=== PATIENT | female | born 1950 | race Caucasian/White ===

== ENCOUNTER 2017-02-28 11:48 | Day surgery (SDC) | payer MEDICARE, BC ==
[~2017-02-28 11:48] MED LIST: Lactated Ringers 1,000 ML IV SCH; Sodium Chloride 0.9% 10 ML Syringe FLUSH PRN
[2017-02-28] MEDS ORDERED: Midazolam 1 MG/ML 2 ML SDV ONE ×2 (12:49→13:01)
[2017-02-28] MEDS ORDERED: Propofol 200 MG/20 ML SDV ONE ×2 (12:49→13:01)
[2017-02-28] MEDS ORDERED: fentaNYL 100 MCG/2 ML SDV ONE ×2 (12:49→13:01)
--- NOTE | 2017-02-28 12:58 | PCM.HPR ---
H & P Addendum review - H & P Addendum Review Date of Original H & P: 02/13/17 Date Reviewed: 02/28/17 Time Reviewed: 12:58 Patient was Examined: No Changes
--- NOTE | 2017-02-28 13:34 | PCM.OPNOTE ---
- General Post-Op/Procedure Note Date of Surgery/Procedure: 02/28/17 Operative Procedure(s): Colonoscopy with polypectomy Findings: Sig colon polyp at 20 cm Pre Op Diagnosis: Hx Colon polyps Post-Op Diagnosis: Same Anesthesia Technique: MAC Primary Surgeon: Dwayne Bishop Anesthesia Provider: Marissa Brothers Complications: None Condition: Good Free Text/Narrative:: Intake & Output 02/27/17 02/28/17 02/28/17 22:59 06:59 14:59 Intake Total 500 Balance 500
--- NOTE | 2017-02-28 15:40 | OR ---
Date of Procedure: 02/28/2017 PREOPERATIVE DIAGNOSIS: History of colon polyps. POSTOPERATIVE DIAGNOSIS: Sigmoid colon polyp. PROCEDURE: Colonoscopy with polypectomy. ANESTHESIA: IV sedation. PROCEDURE IN DETAIL: The patient was brought to the procedure, where she was placed on her left side and IV sedation administered. Digital rectal exam was performed, which was normal. Colonoscope was inserted and advanced to the area of the hepatic flexure without difficulty. At that time, I experienced significant looping and the entire scope had been inserted and was unable to get further. Despite pressure on the abdomen, the scope would not advance. Prep up to that point was good and surfaces were well visualized. Upon withdrawing the scope, the visible ascending, transverse, and descending colon were normal. Sigmoid colon had an 8 mm sessile polyp located 20 cm from the anal verge. Those removed with a cautery snare and retrieved in the polyp trap. Rectum was normal and retroflexion was normal. Air was removed and the scope withdrawn. The patient tolerated the procedure well and returned to recovery in stable condition. I will contact the patient with the pathology report when it returns. The patient states that on previous colonoscopies, the entire colon was not able to be visualized and she has had previous barium enemas and does not wish to do that again. ERROL PERSAUD MD /[id number]
== END 2017-02-28 15:29 | disposition home or self-care (01) ==
LOC: LL.SDS 11:48
PROVIDERS: ATTEND Surgery
DX: Z12.11 Encounter for screening for malignant neoplasm of colon (principal); J44.9 Chronic obstructive pulmonary disease, unspecified; G47.33 Obstructive sleep apnea (adult) (pediatric); E11.9 Type 2 diabetes mellitus without complications; I10 Essential (primary) hypertension; E78.5 Hyperlipidemia, unspecified; F32.9 Major depressive disorder, single episode, unspecified; K21.9 Gastro-esophageal reflux disease without esophagitis; I73.9 Peripheral vascular disease, unspecified; Z79.84 Long term (current) use of oral hypoglycemic drugs; Z79.899 Other long term (current) drug therapy; Z86.010 Personal history of colon polyps; Z88.0 Allergy status to penicillin; Z99.89 Dependence on other enabling machines and devices; Z79.82 Long term (current) use of aspirin
CPT/HCPCS: 45385; 82962; J2250; J2704; J3010; J7120; 00812; 88305

== ENCOUNTER 2020-10-21 16:38 | Inpatient (IN) | payer MEDICARE, BC ==
--- NOTE | 2020-10-21 17:50 | EDM.PDOC ---
ED HPI GENERAL MEDICAL PROBLEM - General Chief Complaint: Fever Stated Complaint: fever, cough, confusion Time Seen by Provider: 10/21/20 16:53 Source of Information: Reports: Patient, Family History Limitations: Reports: Other (no obvious limitations) - History of Present Illness INITIAL COMMENTS - FREE TEXT/NARRATIVE: Patient comes in with complaint of 2-3 day history of cough. Has COPD, does not feel any more SOB than usual. Also history of sleep apnea/has not been using CPAP due to hers being recalled and unable to replace it so far with a new one. Fever of 101-102 last 24 hours. has noted that patient has been a bit confused for a number of months. He thought that maybe it coincided with her starting Gabapentin. Confusion has worsened over the last few days. She had issues putting her blouse on earlier. Decreased PO intake today. No headache or other new aches/pains. Denies GI changes. No sore throat/runny nose. Mild burning with urination "at times". No other acute changes. denies feeling ill. 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: Acetaminophen, NSAIDS - Related Data Allergies Allergy/AdvReac Type Severity Reaction Status Date / Time Penicillins Allergy Hives Verified 10/21/20 16:45 Home Meds: Home Meds Albuterol Sulfate [Proair Respiclick] 1 - 2 puff IH Q4H PRN 02/27/17 [History] Aspirin [Halfprin] 81 mg PO DAILY 02/27/17 [History] Benazepril HCl [Lotensin] 20 mg PO DAILY 02/27/17 [History] Calcium Citrate/Vitamin D3 [Calcium Citrate + D] 1 tab PO BIDMEALS 02/27/17 [History] Ferrous Sulfate 325 mg PO DAILY 02/27/17 [History] Insulin Aspart [NovoLOG] 12 - 24 unit SQ ACBREAKFAST 02/27/17 [History] Insulin Aspart [NovoLOG] 27 - 33 unit SQ ACDINNER 02/27/17 [History] Insulin Aspart [NovoLOG] 30 - 35 unit SQ ACLUNCH 02/27/17 [History] Insulin Glargine,Hum.Rec.Anlog [Mariel Solostar] 73 unit SQ BEDTIME 02/27/17 [History] Magnesium Oxide [Magnesium] 400 mg PO DAILY 02/27/17 [History] Metoprolol Succinate [Toprol XL] 100 mg PO DAILY 02/27/17 [History] Multivitamin [Daily Multiple Vitamin] 1 tab PO DAILY 02/27/17 [History] Omeprazole 20 mg PO Q48H 02/27/17 [History] Polyethylene Glycol 3350 [MiraLAX] 17 gm PO DAILY PRN 02/27/17 [History] Triamcinolone Acetonide [Triamcinolone Acetonide 0.1% Crm] 1 applic TOP BID PRN 02/27/17 [History] Triamterene/Hydrochlorothiazid [Triamterene-HCTZ 37.5-25 MG] 1 each PO DAILY 02/27/17 [History] atorvaSTATin [Lipitor] 40 mg PO DAILY 02/27/17 [History] buPROPion [Wellbutrin XL] 150 mg PO DAILY 02/27/17 [History] metFORMIN HCl [Metformin HCl] 1,000 mg PO BID 02/27/17 [History] Insulin Glargine,Hum.Rec.Anlog [Basaglar Kwikpen U-100] 76 unit SUBCUT DAILY 02/28/17 [History] Past Medical History HEENT History: Reports: Allergic Rhinitis Cardiovascular History: Reports: High Cholesterol, Hypertension, PVD, Other (See Below) Other Cardiovascular History: right bundle branch block Respiratory History: Reports: COPD, Sleep Apnea Gastrointestinal History: Reports: Cholelithiasis, Colon Polyp, Diverticulosis, GERD, Hemorrhoids, Other (See Below) Other Gastrointestinal History: nonalcoholic liver disease, colitis, rectocele Genitourinary History: Reports: Urinary Incontinence, Other (See Below) Other Genitourinary History: cystocele PHYSICAL TRAINER History: Reports: Other (See Below) Other PHYSICAL TRAINER History: ovarian cyst, galactorrhea Musculoskeletal History: Reports: Osteoarthritis, Other (See Below) Other Musculoskeletal History: carpal tunnel syndrome left Psychiatric History: Reports: Depression, Other (See Below) (recent signs of memory impairment/confusion) Endocrine/Metabolic History: Reports: Diabetes, Type II, Obesity/BMI 30+, Osteopenia Oncologic (Cancer) History: Reports: Breast Other Oncologic History: ductal carcinoma in situ of right breast - Past Surgical History GI Surgical History: Reports: Cholecystectomy, Colonoscopy, Hernia Repair/Other, Other (See Below) Other GI Surgeries/Procedures: hemmorroid surgery Female Surgical History: Reports: Hysterectomy, Mastectomy, Other (See Below) Other Female Surgeries/Procedures: right breast lumpectomy 2010, right partial mastectomy 01/08/11, vaginal wall repair 2002 Neurological Surgical History: Reports: Other (See Below) Other Neurological Surgeries/Procedures: lumbar disc surgery, spine repair Musculoskeletal Surgical History: Reports: Carpal Tunnel, Other (See Below) Social & Family History - Tobacco Use Tobacco Use Status *Q: Never Tobacco User Second Hand Smoke Exposure: No ED ROS GENERAL - Review of Systems Review Of Systems: Comprehensive ROS is negative, except as noted in HPI. ED EXAM, GENERAL - Physical Exam Exam: See Below Exam Limited By: No Limitations General Appearance: Alert, No Apparent Distress, Obese Eye Exam: Bilateral Eye: EOMI, PERRL Ears: Normal External Exam, Normal Canal, Hearing Grossly Normal, Normal TMs Nose: No: Nasal Deformity, Nasal Swelling Throat/Mouth: Normal Lips, Normal Voice, No Airway Compromise Head: Atraumatic, Normocephalic Neck: Normal Inspection, Supple, Non-Tender, Full Range of Motion Respiratory/Chest: No Respiratory Distress, Lungs Clear, Normal Breath Sounds, No Accessory Muscle Use, Chest Non-Tender Cardiovascular: Normal Peripheral Pulses, Regular Rate, Rhythm, No Murmur GI/Abdominal: Normal Bowel Sounds, Soft, Non-Tender (Female) Exam: Deferred Rectal (Female) Exam: Deferred Back Exam: No: CVA Tenderness (L), CVA Tenderness (R), Muscle Spasm, Paraspinal Tenderness, Vertebral Tenderness Extremities: Non-Tender, No Pedal Edema, Normal Capillary Refill Neurological: Alert, No Motor/Sensory Deficits, 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 Cannot recall year. ) Psychiatric: Normal Affect, Normal Mood Skin Exam: Warm, Dry, Intact, Normal Color Course - Vital Signs Last Recorded V/S: Last Vital Signs Temp 38.4 C H 10/21/20 19:52 Pulse 109 H 10/21/20 19:52 Resp 20 10/21/20 19:52 BP 101/44 L 10/21/20 19:53 Pulse Ox 94 L 10/21/20 19:52 - Orders/Labs/Meds Orders: Active Orders 24 hr Category Date Time Status Vital Signs [RC] 08,20 Care 10/21/20 18:32 Active Chest 2V [CR] Stat Exams 10/21/20 16:54 Taken CULTURE BLOOD [BC] Stat Lab 10/21/20 17:32 Received CULTURE BLOOD [] Stat Lab 10/21/20 17:32 Received Sodium Chloride 0.9% [Normal Saline] 500 ml Med 10/21/20 18:30 Active IV .BOLUS Sodium Chloride 0.9% [Saline Flush] Med 10/21/20 18:23 Active 10 ml FLUSH ASDIRECTED PRN Blood Culture x2 Reflex Set [OM.PC] Stat Oth 10/21/20 16:55 Ordered Saline Lock Insert [OM.PC] Routine Oth 10/21/20 18:23 Ordered Medication Orders Sodium Chloride (Normal Saline) 500 mls @ 250 mls/hr IV .BOLUS SHARIF Sodium Chloride (Sodium Chloride 0.9% 10 Ml Syringe) 10 ml FLUSH ASDIRECTED PRN PRN Reason: Keep Vein Open Labs: Laboratory Tests 10/21/20 10/21/20 10/21/20 Range/Units 16:53 16:54 17:23 WBC 10.3 H (4.0-10.2) K/uL RBC 4.10 (3.77-5.09) M/uL Hgb 12.2 (11.7-15.5) g/dL Hct 37.4 (34.0-46.0) % MCV 91.2 (84.0-98.0) fL MCH 29.8 (28.2-33.3) pg MCHC 32.6 (31.7-36.0) g/dL RDW 14.6 H (11.2-14.1) % Plt Count 116 L (150-350) K/uL Neut % (Auto) 76.8 (45.0-80.0) % Lymph % (Auto) 13.2 (10.0-50.0) % Glascock % (Auto) 9.0 (2.0-14.0) % Eos % (Auto) 0.7 (0.0-5.0) % Baso % (Auto) 0.3 (0.0-2.0) % Neut # (Auto) 7.93 H (1.40-7.00) K/uL Lymph # (Auto) 1.36 (0.50-3.50) K/uL Glascock # (Auto) 0.93 (0.00-1.00) K/uL Eos # (Auto) 0.07 (0.00-0.50) K/uL Baso # (Auto) 0.03 (0.00-0.20) K/uL D-Dimer, Quantitative (0-400) ng/mL Sodium (136-145) mmol/L Potassium (3.5-5.1) mmol/L Chloride (98-107) mmol/L Carbon Dioxide (21.0-32.0) mmol/L Anion Gap (7-15) meq/L BUN (7-18) mg/dL Creatinine (0.51-1.17) mg/dL Est Cr Clr Drug Dosing mL/min Estimated GFR (MDRD) mL/min Glucose (70-99) mg/dL Lactic Acid (0.4-2.0) mmol/L Calcium (8.5-10.1) mg/dL Magnesium (1.8-2.4) mg/dL Total Bilirubin (0.2-1.0) mg/dL AST (15-37) U/L ALT (12-78) U/L Alkaline Phosphatase (46-116) IU/L NT-Pro-B Natriuret Pep (0-125) pg/mL Total Protein (6.4-8.2) g/dL Albumin (3.4-5.0) g/dL Specimen Type Urinvoid Urine Color Yellow Urine Appearance Slightly cloudy Urine pH 5.5 (5.0-9.0) Ur Specific Dunning >= 1.030 (1.005-1.030) Urine Protein 30 H (NEGATIVE) mg/dL Urine Glucose (UA) Negative (NEGATIVE) mg/dL Urine Ketones Trace H (NEGATIVE) mg/dL Urine Occult Blood Negative (NEGATIVE) Urine Nitrite Negative (NEGATIVE) Urine Bilirubin Small H (NEGATIVE) Urine Urobilinogen 1.0 (0.2-1.0) E.U./dL Ur Leukocyte Esterase Negative (NEGATIVE) Urine RBC 0-5 /HPF Urine WBC 0-5 /HPF Ur Epithelial Cells Many H /LPF Urine Bacteria Few (NONE TO FEW) /HPF SARS-CoV-2 RNA (KOBE) Negative (NEGATIVE) 10/21/20 10/21/20 10/21/20 Range/Units 17:32 17:32 17:32 WBC (4.0-10.2) K/uL RBC (3.77-5.09) M/uL Hgb (11.7-15.5) g/dL Hct (34.0-46.0) % MCV (84.0-98.0) fL MCH (28.2-33.3) pg MCHC (31.7-36.0) g/dL RDW (11.2-14.1) % Plt Count (150-350) K/uL Neut % (Auto) (45.0-80.0) % Lymph % (Auto) (10.0-50.0) % Glascock % (Auto) (2.0-14.0) % Eos % (Auto) (0.0-5.0) % Baso % (Auto) (0.0-2.0) % Neut # (Auto) (1.40-7.00) K/uL Lymph # (Auto) (0.50-3.50) K/uL Glascock # (Auto) (0.00-1.00) K/uL Eos # (Auto) (0.00-0.50) K/uL Baso # (Auto) (0.00-0.20) K/uL D-Dimer, Quantitative 1990 H (0-400) ng/mL Sodium 139 (136-145) mmol/L Potassium 4.3 (3.5-5.1) mmol/L Chloride 103 (98-107) mmol/L Carbon Dioxide 25.1 (21.0-32.0) mmol/L Anion Gap 10.9 (7-15) meq/L BUN 32 H (7-18) mg/dL Creatinine 1.80 H (0.51-1.17) mg/dL Est Cr Clr Drug Dosing 22.34 mL/min Estimated GFR (MDRD) 28 mL/min Glucose 270 H (70-99) mg/dL Lactic Acid 3.6 H (0.4-2.0) mmol/L Calcium 9.5 (8.5-10.1) mg/dL Magnesium 1.5 L (1.8-2.4) mg/dL Total Bilirubin 1.9 H (0.2-1.0) mg/dL AST 19 (15-37) U/L ALT 29 (12-78) U/L Alkaline Phosphatase 103 (46-116) IU/L NT-Pro-B Natriuret Pep 466 H (0-125) pg/mL Total Protein 7.5 (6.4-8.2) g/dL Albumin 3.2 L (3.4-5.0) g/dL Specimen Type Urine Color Urine Appearance Urine pH (5.0-9.0) Ur Specific Dunning (1.005-1.030) Urine Protein (NEGATIVE) mg/dL Urine Glucose (UA) (NEGATIVE) mg/dL Urine Ketones (NEGATIVE) mg/dL Urine Occult Blood (NEGATIVE) Urine Nitrite (NEGATIVE) Urine Bilirubin (NEGATIVE) Urine Urobilinogen (0.2-1.0) E.U./dL Ur Leukocyte Esterase (NEGATIVE) Urine RBC /HPF Urine WBC /HPF Ur Epithelial Cells /LPF Urine Bacteria (NONE TO FEW) /HPF SARS-CoV-2 RNA (KOBE) (NEGATIVE) Meds: Medications Generic Name Dose Route Start Last Admin Trade Name Freq PRN Reason Stop Dose Admin Sodium Chloride 500 mls @ 250 mls/hr 10/21/20 18:30 Normal Saline IV .BOLUS SHARIF Sodium Chloride 10 ml 10/21/20 18:23 Sodium Chloride 0.9% 10 Ml Syringe FLUSH ASDIRECTED PRN Keep Vein Open Discontinued Medications Generic Name Dose Route Start Last Admin Trade Name Freq PRN Reason Stop Dose Admin Acetaminophen 650 mg 10/21/20 18:46 10/21/20 19:46 Acetaminophen 325 Mg Tab PO 10/21/20 18:47 650 mg NOW ONE Administration Azithromycin 500 mg 10/21/20 18:13 10/21/20 18:36 Azithromycin 250 Mg Tab PO 10/21/20 18:14 Not Given ONETIME ONE Ceftriaxone Sodium 1 gm 10/21/20 18:12 10/21/20 18:36 Ceftriaxone 1 Gm Vial IM 10/21/20 18:13 Not Given ONETIME ONE Azithromycin 500 mg/ Sodium 250 mls @ 250 mls/hr 10/21/20 18:21 10/21/20 19:45 Chloride IV 10/21/20 19:20 250 mls/hr ONETIME ONE Administration Ceftriaxone Sodium 1 gm/ 100 mls @ 200 mls/hr 10/21/20 18:22 10/21/20 18:44 Sodium Chloride IV 10/21/20 18:51 200 mls/hr ONETIME ONE Administration Magnesium Sulfate/Dextrose 1 100 mls @ 100 mls/hr 10/21/20 18:23 gm/ Premix IV 10/21/20 19:22 ONETIME ONE - Radiology Interpretation Free Text/Narrative:: Xray shows right middle lobe infiltrate - Re-Assessments/Exams Free Text/Narrative Re-Assessment/Exam: 10/21/20 18:24 Right middle lobe infiltrate. WBC 10.3. Elevated specific gravity of urine/suspect mild dehydration. Creatinine 1.80. Mag low at 1.5. ProBNP 466. Total bili 1.9 with normal ALT/AST. DDimer elevated at 1989. Lactic also el evated at 3.6 Covid negative. Unable to collect sputum for culture at this time. Discussed above results with patient and her . Inpatient vs outpatient options reviewed with them. Noted that patient's respiratory rate is normal. Sats on room air 93%/she has known history of COPD. Again she denies feeling more SOB than usual. Mild tachycardia and fever noted along with the elevated l actic. Patient wanted to be able to go home. Willing to receive IV antibiotics with return as outpatient tomorrow for recheck and additional dosing of antibiotics. Discussed elevated DDimer and how it can be a flag for PE. Again, patient does not feel additional SOB. No pain/swelling/symptoms suggestive of DVT noted on exam. Patient and did not want additional evaluation for rule out PE at this time. Blood cultures pending. Plan at this time is to infuse Rocephin/Zithromax along with 500ml NS. Will also give single dose of Magnesium. Will leave saline lock in place and have patient return tomorrow for re-evaluation and additional IV antibiotics. 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 Recheck labs tomorrow. 10/21/20 20:01 Patient's confusion increased during antibiotic infusion. She pulled out her IV. IV re-established. Recommended to patient and patient's that it would be best to admit for further treatment. They were agreeable with admission. Departure - Departure Time of Disposition: 20:10 Disposition: Admitted As Inpatient 64 Condition: Good Clinical Impression: Lactic acid increased, Creatinine elevation, Hypomagnesemia, D-dimer, elevated, Hyperbilirubinemia Right middle lobe pneumonia Qualifiers: Pneumonia type: due to unspecified organism Qualified Code(s): J18.9 - Pneumonia, unspecified organism - Discharge Information *PRESCRIPTION DRUG MONITORING PROGRAM REVIEWED*: Not Applicable *COPY OF PRESCRIPTION DRUG MONITORING REPORT IN PATIENT LEIF: Not Applicable Sepsis Event Note (ED) - Evaluation Sepsis Screening Result: Possible Sepsis Risk - Focused Exam Vital Signs: Vital Signs Temp Pulse Resp BP BP Pulse Ox 10/21/20 19:53 101/44 L 10/21/20 19:52 38.4 C H 109 H 20 81/41 L 94 L 10/21/20 19:04 39.0 C H 10/21/20 17:05 39.1 C H 106 H 20 152/65 H 93 L 10/21/20 16:39 39.1 C H 20 - Problem List & Annotations (1) Right middle lobe pneumonia SNOMED Code(s): 962881633 Code(s): J18.9 - PNEUMONIA, UNSPECIFIED ORGANISM Status: Acute Priority: High Current Visit: Yes Annotation/Comment:: Right middle lobe pneumonia. Started on IV Rocephin and Zithromax. Blood cultures pending. Qualifiers: Pneumonia type: due to unspecified organism Qualified Code(s): J18.9 - Pneumonia, unspecified organism (2) Confusion SNOMED Code(s): 759061077 Code(s): R41.0 - DISORIENTATION, UNSPECIFIED Status: Acute Priority: High Current Visit: Yes Annotation/Comment:: reports patient has been intermittently mildly confused for a number of months since starting Gabapentin. Much more pronounced confusion last several days since developing symptoms of pneumonia. (3) Lactic acid increased SNOMED Code(s): 00108252 Code(s): E87.2 - ACIDOSIS Status: Acute Priority: High Current Visit: Yes Annotation/Comment:: Blood cultures pending. Recheck in AM. (4) Creatinine elevation SNOMED Code(s): 343212478, 642994211 Code(s): R79.89 - OTHER SPECIFIED ABNORMAL FINDINGS OF BLOOD CHEMISTRY Status: Acute Priority: Medium Current Visit: Yes Annotation/Comment:: Suspect some degree of dehydration. Recheck in AM. (5) Hypomagnesemia SNOMED Code(s): 131235530 Code(s): E83.42 - HYPOMAGNESEMIA Status: Chronic Priority: Medium Current Visit: Yes Annotation/Comment:: Magnesium replacement initiated. (6) D-dimer, elevated SNOMED Code(s): 690395095 Code(s): R79.89 - OTHER SPECIFIED ABNORMAL FINDINGS OF BLOOD CHEMISTRY Status: Acute Priority: Medium Current Visit: Yes Annotation/Comment:: No evidence of DVTs. Patient denies acute increase SOB. Normal respiratory rate. Patient and decline further evaluation at this time. Patient would require VQ scan if creatinine remains elevated. (7) Hyperbilirubinemia SNOMED Code(s): 51435283 Code(s): E80.6 - OTHER DISORDERS OF BILIRUBIN METABOLISM Status: Chronic Priority: Low Current Visit: Yes Annotation/Comment:: History of chronic non-alcoholic liver disease per record. (8) HTN (hypertension) SNOMED Code(s): 39715883 Code(s): I10 - ESSENTIAL (PRIMARY) HYPERTENSION Status: Chronic Priority: Low Current Visit: No Annotation/Comment:: observe trends Qualifiers: Hypertension type: primary hypertension Qualified Code(s): I10 - Essential (primary) hypertension (9) Hyperlipidemia SNOMED Code(s): 86200209 Code(s): E78.5 - HYPERLIPIDEMIA, UNSPECIFIED Status: Chronic Priority: Low Current Visit: No Annotation/Comment:: stable per history Qualifiers: Hyperlipidemia type: unspecified Qualified Code(s): E78.5 - Hyperlipidemia, unspecified (10) COPD (chronic obstructive pulmonary disease) SNOMED Code(s): 57091093 Code(s): J44.9 - CHRONIC OBSTRUCTIVE PULMONARY DISEASE, UNSPECIFIED Status: Chronic Priority: Low Current Visit: Yes Annotation/Comment:: No symptoms suggestive of acute exacerbation at this time. Qualifiers: COPD type: unspecified COPD Qualified Code(s): J44.9 - Chronic obstructive pulmonary disease, unspecified (11) Sleep apnea SNOMED Code(s): 22337679 Code(s): G47.30 - SLEEP APNEA, UNSPECIFIED Status: Chronic Priority: Low Current Visit: No Annotation/Comment:: Patient does not use CPAP at this time due to her CPAP being recalled and so far unable to obtain a new unit. Qualifiers: Sleep apnea type: unspecified type Qualified Code(s): G47.30 - Sleep apnea, unspecified (12) GERD (gastroesophageal reflux disease) SNOMED Code(s): 475952176 Code(s): K21.9 - GASTRO-ESOPHAGEAL REFLUX DISEASE WITHOUT ESOPHAGITIS Status: Chronic Priority: Low Current Visit: No Annotation/Comment:: stable per history Qualifiers: Esophagitis presence: esophagitis presence not specified Qualified Code(s): K21.9 - Gastro-esophageal reflux disease without esophagitis (13) Nonalcoholic liver disease, chronic SNOMED Code(s): 73592228 Code(s): K76.9 - LIVER DISEASE, UNSPECIFIED Status: Chronic Priority: Low Current Visit: No (14) Osteoarthritis SNOMED Code(s): 342015657 Code(s): M19.90 - UNSPECIFIED OSTEOARTHRITIS, UNSPECIFIED SITE Status: Chronic Priority: Low Current Visit: No Annotation/Comment:: stable per history Qualifiers: Osteoarthritis location: unspecified site (15) DM type 2 (diabetes mellitus, type 2) SNOMED Code(s): 92337720 Code(s): E11.9 - TYPE 2 DIABETES MELLITUS WITHOUT COMPLICATIONS Status: Chronic Priority: Low Current Visit: Yes Annotation/Comment:: accuchecks ordered. Qualifiers: Diabetes mellitus group home insulin use: with terminal carman use - Problem List Review Problem List Initiated/Reviewed/Updated: Yes - My Orders Last 24 Hours: My Active Orders 10/21/20 16:54 Chest 2V [CR] Stat 10/21/20 16:55 Blood Culture x2 Reflex Set [OM.PC] Stat 10/21/20 17:32 CULTURE BLOOD [BC] Stat CULTURE BLOOD [BC] Stat 10/21/20 18:23 Sodium Chloride 0.9% [Saline Flush] 10 ml FLUSH ASDIRECTED PRN Saline Lock Insert [OM.PC] Routine 10/21/20 18:30 Sodium Chloride 0.9% [Normal Saline] 500 ml IV .BOLUS 10/21/20 18:32 Vital Signs [RC] 08,20 - Assessment/Plan Admission H&P: Please use this note as an admission H&P Last 24 Hours: My Active Orders 10/21/20 16:54 Chest 2V [CR] Stat 10/21/20 16:55 Blood Culture x2 Reflex Set [OM.PC] Stat 10/21/20 17:32 CULTURE BLOOD [BC] Stat CULTURE BLOOD [BC] Stat 10/21/20 18:23 Sodium Chloride 0.9% [Saline Flush] 10 ml FLUSH ASDIRECTED PRN Saline Lock Insert [OM.PC] Routine 10/21/20 18:30 Sodium Chloride 0.9% [Normal Saline] 500 ml IV .BOLUS 10/21/20 18:32 Vital Signs [RC] 08,20 Assessment:: as above Plan: as above. Anticipate 3-4 day stay given multiple concerns/sepsis risk/confusion.
[2020-10-21 18:05] LABS: ANION GAP 10.9 meq/L (7-15)
[2020-10-21] MEDS ORDERED: cefTRIAXone 1 GM Vial IM ONE (18:12)
[2020-10-21] MEDS ORDERED: Azithromycin 250 MG Tab PO ONE (18:13)
[2020-10-21] MEDS ORDERED: Azithromycin 500 MG in Sodium Chloride 0.9% 250 ML IV ONE (18:21)
[2020-10-21] MEDS ORDERED: cefTRIAXone 1 GM in Sodium Chloride 0.9% 100 ML IV ONE (18:22)
[2020-10-21] MEDS ORDERED: Sodium Chloride 0.9% 500 ML IV SCH (18:30)
[2020-10-21] MEDS ORDERED: Acetaminophen 325 MG Tab PO ONE (18:46)
[2020-10-21] MEDS ORDERED: LORazepam 2 MG/ML SDV IVPUSH PRN (20:59)
[2020-10-21] MEDS ORDERED: 50% Dextrose in Water 50 ML Syringe IVPUSH PRN (21:12)
[2020-10-21] MEDS ORDERED: Glucagon,Human Recombinant 1 MG Vial IM PRN (21:12)
[2020-10-21] MEDS ORDERED: Omeprazole 20 MG Cap.CR PO SCH (21:15)
[2020-10-21] MEDS: Enoxaparin 30 MG/0.3 ML Syringe SUBCUT SCH (23:15)
[2020-10-22] MEDS: Sodium Chloride 0.9% 1,000 ML IV SCH ×3 (00:05→20:45)
[2020-10-22] MEDS ORDERED: Acetaminophen 325 MG Tab PO PRN (00:52)
[2020-10-22] MEDS: guaiFENesin/Dextromethorphan 100-10 MG/5 ML Soln 10 ML Cup PO PRN ×2 (01:01→11:53)
[2020-10-22] MEDS: Acetaminophen 325 MG Tab PO PRN ×4 (01:04→17:01)
[2020-10-22] MEDS ORDERED: Albuterol 6.7 GM Inhaler INH PRN (05:00)
[2020-10-22] MEDS ORDERED: metFORMIN 500 MG Tab PO SCH ×2 (07:30→08:00)
[2020-10-22] MEDS: Albuterol 6.7 GM Inhaler INH SCH ×4 (07:57→20:45)
[2020-10-22] MEDS: Insulin Lispro 100 Units/ML 3 ML Vial SUBCUT SCH ×2 (07:57→17:16)
[2020-10-22] MEDS: Lisinopril 20 MG Tab PO SCH (07:58)
[2020-10-22] MEDS: atorvaSTATin 40 MG Tab PO SCH (07:59)
[2020-10-22] MEDS: Hydrochlorothiazide/Triamterene 50-75 MG Tab PO SCH (07:59)
[2020-10-22] MEDS: Aspirin 81 MG Tab.EC PO SCH (07:59)
[2020-10-22] MEDS: Metoprolol Succinate 50 MG Tab.ER PO SCH (07:59)
[2020-10-22] MEDS: buPROPion 150 MG Tab.ER PO SCH (07:59)
[2020-10-22] MEDS: cefTRIAXone 1 GM in Sodium Chloride 0.9% 100 ML IV SCH (08:02)
[2020-10-22 08:10] LABS: ANION GAP 4.2 meq/L (7-15)
[2020-10-22] MEDS: Polyethylene Glycol 3350 Powder 17 GM Packet PO PRN (11:53)
[2020-10-22] MEDS: Azithromycin 500 MG in Sodium Chloride 0.9% 250 ML IV SCH (16:01)
[2020-10-22] MEDS ORDERED: Pantoprazole 40 MG Vial IVPUSH ONE (16:33)
[2020-10-22] MEDS ORDERED: Famotidine 20 MG/2 ML SDV IVPUSH ONE (16:33)
[2020-10-22] MEDS ORDERED: Ondansetron 4 MG/2 ML SDV IVPUSH PRN (16:44)
[2020-10-22] MEDS ORDERED: Ondansetron 4 MG/2 ML SDV ONE (16:59)
[2020-10-22] MEDS: Sodium Chloride 0.9% 10 ML Syringe FLUSH PRN ×2 (17:01→17:06)
--- NOTE | 2020-10-22 19:09 | PCM.SN.2 ---
- Free Text/Narrative Note: Patient responded well to 500ml bolus of NS along with volume of fluid administered from IV antibiotics. BP improved. Maintenance fluids initiated after initial bolus. Recheck of Lactic acid later in evening showed that it returned with normal level.
--- NOTE | 2020-10-22 19:16 | PCM.PN ---
- General Info Date of Service: 10/22/20 Admission Dx/Problem (Free Text): Right middle lobe pneumonia, low Magnesium Subjective Update: Patient feeling better today. No specific focal complaints when asked. Functional Status: Reports: Pain Controlled, Tolerating Diet, Ambulating, Urinating. Denies: New Symptoms - Review of Systems General: Reports: Fever (low grade). Denies: Weakness, Fatigue, Malaise, Chills, Night Sweats HEENT: Reports: No Symptoms Pulmonary: Reports: Cough. Denies: Shortness of Breath, Pleuritic Chest Pain, Sputum, Hemoptysis, Wheezing Cardiovascular: Denies: Chest Pain, Palpitations, Orthopnea, Edema, Lightheadedness Gastrointestinal: Reports: No Symptoms Genitourinary: Reports: No Symptoms Musculoskeletal: Reports: Other (no acute changes from baseline) Skin: Reports: No Symptoms Neurological: Reports: Confusion (much improved overnight). Denies: Dizziness, Headache, Trouble Speaking, Change in Speech Psychiatric: Reports: No Symptoms - Patient Data Vitals - Most Recent: Last Vital Signs Temp 37.9 C 10/22/20 18:04 Pulse 86 10/22/20 16:54 Resp 18 10/22/20 16:54 BP 109/62 10/22/20 16:54 Pulse Ox 92 L 10/22/20 16:54 Weight - Most Recent: 113.489 kg I&O - Last 24 Hours: Intake & Output 10/22/20 10/22/20 10/22/20 06:59 14:59 22:59 Intake Total 7621 357 5630 Output Total 400 400 200 Balance 1250 -200 1850 Lab Results Last 24 Hours: Laboratory Results - last 24 hr 10/21/20 10/21/20 10/22/20 Range/Units 23:05 23:10 07:32 WBC (4.0-10.2) K/uL RBC (3.77-5.09) M/uL Hgb (11.7-15.5) g/dL Hct (34.0-46.0) % MCV (84.0-98.0) fL MCH (28.2-33.3) pg MCHC (31.7-36.0) g/dL RDW (11.2-14.1) % Plt Count (150-350) K/uL Neut % (Auto) (45.0-80.0) % Lymph % (Auto) (10.0-50.0) % [place] % (Auto) (2.0-14.0) % Eos % (Auto) (0.0-5.0) % Baso % (Auto) (0.0-2.0) % Neut # (Auto) (1.40-7.00) K/uL Lymph # (Auto) (0.50-3.50) K/uL [place] # (Auto) (0.00-1.00) K/uL Eos # (Auto) (0.00-0.50) K/uL Baso # (Auto) (0.00-0.20) K/uL Sodium 136 (136-145) mmol/L Potassium 4.2 (3.5-5.1) mmol/L Chloride 105 (98-107) mmol/L Carbon Dioxide 26.8 (21.0-32.0) mmol/L Anion Gap 4.2 L (7-15) meq/L BUN 29 H (7-18) mg/dL Creatinine 1.56 H (0.51-1.17) mg/dL Est Cr Clr Drug Dosing 25.78 mL/min Estimated GFR (MDRD) 33 mL/min Glucose 256 H (70-99) mg/dL POC Glucose 221 H (70-99) mg/dL Lactic Acid 2.0 (0.4-2.0) mmol/L Calcium 8.4 L (8.5-10.1) mg/dL Magnesium 1.6 L (1.8-2.4) mg/dL Total Bilirubin 1.7 H (0.2-1.0) mg/dL AST 21 (15-37) U/L ALT 25 (12-78) U/L Alkaline Phosphatase 86 (46-116) IU/L Total Protein 6.4 (6.4-8.2) g/dL Albumin 2.6 L (3.4-5.0) g/dL 10/22/20 10/22/20 10/22/20 Range/Units 07:32 07:32 07:40 WBC 8.3 (4.0-10.2) K/uL RBC 3.49 L (3.77-5.09) M/uL Hgb 10.5 L D (11.7-15.5) g/dL Hct 31.7 L (34.0-46.0) % MCV 90.8 (84.0-98.0) fL MCH 30.1 (28.2-33.3) pg MCHC 33.1 (31.7-36.0) g/dL RDW 14.6 H (11.2-14.1) % Plt Count 108 L (150-350) K/uL Neut % (Auto) 76.9 (45.0-80.0) % Lymph % (Auto) 13.0 (10.0-50.0) % [place] % (Auto) 8.7 (2.0-14.0) % Eos % (Auto) 1.2 (0.0-5.0) % Baso % (Auto) 0.2 (0.0-2.0) % Neut # (Auto) 6.37 (1.40-7.00) K/uL Lymph # (Auto) 1.08 (0.50-3.50) K/uL [place] # (Auto) 0.72 (0.00-1.00) K/uL Eos # (Auto) 0.10 (0.00-0.50) K/uL Baso # (Auto) 0.02 (0.00-0.20) K/uL Sodium (136-145) mmol/L Potassium (3.5-5.1) mmol/L Chloride (98-107) mmol/L Carbon Dioxide (21.0-32.0) mmol/L Anion Gap (7-15) meq/L BUN (7-18) mg/dL Creatinine (0.51-1.17) mg/dL Est Cr Clr Drug Dosing mL/min Estimated GFR (MDRD) mL/min Glucose (70-99) mg/dL POC Glucose 243 H (70-99) mg/dL Lactic Acid 1.6 (0.4-2.0) mmol/L Calcium (8.5-10.1) mg/dL Magnesium (1.8-2.4) mg/dL Total Bilirubin (0.2-1.0) mg/dL AST (15-37) U/L ALT (12-78) U/L Alkaline Phosphatase (46-116) IU/L Total Protein (6.4-8.2) g/dL Albumin (3.4-5.0) g/dL 10/22/20 10/22/20 Range/Units 11:26 17:08 WBC (4.0-10.2) K/uL RBC (3.77-5.09) M/uL Hgb (11.7-15.5) g/dL Hct (34.0-46.0) % MCV (84.0-98.0) fL MCH (28.2-33.3) pg MCHC (31.7-36.0) g/dL RDW (11.2-14.1) % Plt Count (150-350) K/uL Neut % (Auto) (45.0-80.0) % Lymph % (Auto) (10.0-50.0) % [place] % (Auto) (2.0-14.0) % Eos % (Auto) (0.0-5.0) % Baso % (Auto) (0.0-2.0) % Neut # (Auto) (1.40-7.00) K/uL Lymph # (Auto) (0.50-3.50) K/uL [place] # (Auto) (0.00-1.00) K/uL Eos # (Auto) (0.00-0.50) K/uL Baso # (Auto) (0.00-0.20) K/uL Sodium (136-145) mmol/L Potassium (3.5-5.1) mmol/L Chloride (98-107) mmol/L Carbon Dioxide (21.0-32.0) mmol/L Anion Gap (7-15) meq/L BUN (7-18) mg/dL Creatinine (0.51-1.17) mg/dL Est Cr Clr Drug Dosing mL/min Estimated GFR (MDRD) mL/min Glucose (70-99) mg/dL POC Glucose 220 H 256 H (70-99) mg/dL Lactic Acid (0.4-2.0) mmol/L Calcium (8.5-10.1) mg/dL Magnesium (1.8-2.4) mg/dL Total Bilirubin (0.2-1.0) mg/dL AST (15-37) U/L ALT (12-78) U/L Alkaline Phosphatase (46-116) IU/L Total Protein (6.4-8.2) g/dL Albumin (3.4-5.0) g/dL Andi Results Last 24 Hours: Microbiology 10/21/20 17:32 Aerobic Blood Culture - Preliminary Blood - Venous NO GROWTH AFTER 1 DAY Anaerobic Blood Culture - Preliminary NO GROWTH AFTER 1 DAY 10/21/20 17:32 Aerobic Blood Culture - Preliminary Blood - Venous - Lab Draw NO GROWTH AFTER 1 DAY Anaerobic Blood Culture - Preliminary NO GROWTH AFTER 1 DAY Med Orders - Current: Current Medications Acetaminophen (Acetaminophen 325 Mg Tab) 650 mg PO Q4H PRN PRN Reason: Fever Last Admin: 10/22/20 17:01 Dose: 650 mg Documented by: Albuterol (Albuterol 6.7 Gm Inhaler) 0 gm INH QID [facility] Last Admin: 10/22/20 16:00 Dose: 2 puff Documented by: Albuterol (Albuterol 6.7 Gm Inhaler) 0 gm INH Q4H PRN PRN Reason: Dyspnea Last Admin: 10/22/20 05:06 Dose: 2 puff Documented by: Aspirin (Aspirin 81 Mg Tab.Ec) 81 mg PO DAILY [facility] Last Admin: 10/22/20 07:59 Dose: 81 mg Documented by: Atorvastatin Calcium (Atorvastatin 40 Mg Tab) 40 mg PO DAILY [facility] Last Admin: 10/22/20 07:59 Dose: 40 mg Documented by: Bupropion HCl (Bupropion 150 Mg Tab.Er) 150 mg PO DAILY [facility] Last Admin: 10/22/20 07:59 Dose: 150 mg Documented by: Dextrose/Water (50% Dextrose In Water 50 Ml Syringe) 50 ml IVPUSH ASDIRECTED PRN PRN Reason: Hypoglycemia Enoxaparin Sodium (Enoxaparin 30 Mg/0.3 Ml Syringe) 30 mg SUBCUT Q24H [facility] Last Admin: 10/21/20 23:15 Dose: 30 mg Documented by: Glucagon (Glucagon,Human Recombinant 1 Mg Vial) 1 mg IM ASDIRECTED PRN PRN Reason: Hypoglycemia Guaifenesin/Dextromethorphan (Guaifenesin/Dextromethorphan 100-10 Mg/5 Ml Soln 10 Ml Cup) 10 ml PO Q4H PRN PRN Reason: Cough Last Admin: 10/22/20 11:53 Dose: 10 ml Documented by: Sodium Chloride (Normal Saline) 1,000 mls @ 75 mls/hr IV ASDIRECTED [facility] Last Admin: 10/22/20 07:56 Dose: 75 mls/hr Documented by: Azithromycin 500 mg/ Sodium (Chloride) 250 mls @ 250 mls/hr IV Q24H [facility] Last Admin: 10/22/20 16:01 Dose: 250 mls/hr Documented by: Ceftriaxone Sodium 1 gm/ (Sodium Chloride) 100 mls @ 200 mls/hr IV Q24H [facility] Last Admin: 10/22/20 08:02 Dose: 200 mls/hr Documented by: Magnesium Sulfate/Dextrose 1 (gm/ Premix) 100 mls @ 100 mls/hr IV ONETIME ONE Stop: 10/22/20 20:02 Magnesium Sulfate/Dextrose 1 (gm/ Premix) 100 mls @ 100 mls/hr IV ONETIME ONE Stop: 10/23/20 07:59 Insulin Human Lispro (Insulin Lispro 100 Units/Ml 3 Ml Vial) 0 unit SUBCUT BIDAC [facility]; Protocol Last Admin: 10/22/20 17:16 Dose: 6 unit Documented by: Lisinopril (Lisinopril 20 Mg Tab) 20 mg PO DAILY [facility] Last Admin: 10/22/20 07:58 Dose: 20 mg Documented by: Lorazepam (Lorazepam 2 Mg/Ml Sdv) 0.5 mg IVPUSH Q4H PRN PRN Reason: Agitation Metoprolol Succinate (Metoprolol Succinate 50 Mg Tab.Er) 100 mg PO DAILY [facility] Last Admin: 10/22/20 07:59 Dose: 100 mg Documented by: Ondansetron HCl (Ondansetron 4 Mg/2 Ml Sdv) 4 mg IVPUSH Q6H PRN PRN Reason: Nausea Last Admin: 10/22/20 17:05 Dose: 4 mg Documented by: Polyethylene Glycol (Polyethylene Glycol 3350 Powder 17 Gm Packet) 17 gm PO DAILY PRN PRN Reason: Constipation Last Admin: 10/22/20 11:53 Dose: 17 gm Documented by: Sodium Chloride (Sodium Chloride 0.9% 10 Ml Syringe) 10 ml FLUSH ASDIRECTED PRN PRN Reason: Keep Vein Open Last Admin: 10/22/20 17:06 Dose: 10 ml Documented by: Triamterene/Hydrochlorothiazide (Hydrochlorothiazide/Triamterene 50-75 Mg Tab) 0.5 each PO DAILY [facility] Last Admin: 10/22/20 07:59 Dose: 0.5 each Documented by: Discontinued Medications Acetaminophen (Acetaminophen 325 Mg Tab) 650 mg PO NOW ONE Stop: 10/21/20 18:47 Last Admin: 10/21/20 19:46 Dose: 650 mg Documented by: Azithromycin (Azithromycin 250 Mg Tab) 500 mg PO ONETIME ONE Stop: 10/21/20 18:14 Last Admin: 10/21/20 18:36 Dose: Not Given Documented by: Ceftriaxone Sodium (Ceftriaxone 1 Gm Vial) 1 gm IM ONETIME ONE Stop: 10/21/20 18:13 Last Admin: 10/21/20 18:36 Dose: Not Given Documented by: Azithromycin 500 mg/ Sodium (Chloride) 250 mls @ 250 mls/hr IV ONETIME ONE Stop: 10/21/20 19:20 Last Admin: 10/21/20 19:45 Dose: 250 mls/hr Documented by: Ceftriaxone Sodium 1 gm/ (Sodium Chloride) 100 mls @ 200 mls/hr IV ONETIME ONE Stop: 10/21/20 18:51 Last Admin: 10/21/20 18:44 Dose: 200 mls/hr Documented by: Sodium Chloride (Normal Saline) 500 mls @ 250 mls/hr IV .BOLUS [facility]AR[facility] Last Admin: 10/21/20 22:02 Dose: 250 mls/hr Documented by: Magnesium Sulfate/Dextrose 1 (gm/ Premix) 100 mls @ 100 mls/hr IV ONETIME ONE Stop: 10/21/20 19:22 Last Admin: 10/21/20 20:56 Dose: 100 mls/hr Documented by: Metformin HCl (Metformin 500 Mg Tab) 1,000 mg PO BID [facility] Omeprazole (Omeprazole 20 Mg Cap.Cr) 20 mg PO Q48H [facility] Last Admin: 10/21/20 23:11 Dose: Not Given Documented by: Ondansetron HCl (Ondansetron 4 Mg/2 Ml Sdv) Confirm Administered Dose 4 mg .ROUTE .STK-MED ONE Stop: 10/22/20 17:00 Last Admin: 10/22/20 17:17 Dose: Not Given Documented by: Pantoprazole Sodium (Pantoprazole 40 Mg Vial) 40 mg IVPUSH ONETIME ONE Stop: 10/22/20 16:34 Last Admin: 10/22/20 17:01 Dose: 40 mg Documented by: - Exam Quality Assessment: DVT Prophylaxis General: Alert, Oriented, Cooperative, No Acute Distress HEENT: Pupils Equal, Pupils Reactive, EOMI, Mucous Membr. Moist/Joy Neck: Supple Lungs: Clear to Auscultation, Normal Respiratory Effort Cardiovascular: Regular Rate, Regular Rhythm GI/Abdominal Exam: Normal Bowel Sounds, Soft, Non-Tender, No Distention (Female) Exam: Deferred Back Exam: No: CVA Tenderness (L), CVA Tenderness (R), Muscle Spasm, Paraspinal Tenderness, Vertebral Tenderness Extremities: Non-Tender, No Pedal Edema, Normal Capillary Refill Skin: Warm, Dry Neurological: No New Focal Deficit Psy/Mental Status: Alert, Normal Affect, Normal Mood - Patient Data Lab Results Last 24 hrs: Laboratory Results - last 24 hr 10/21/20 10/21/20 10/22/20 Range/Units 23:05 23:10 07:32 WBC (4.0-10.2) K/uL RBC (3.77-5.09) M/uL Hgb (11.7-15.5) g/dL Hct (34.0-46.0) % MCV (84.0-98.0) fL MCH (28.2-33.3) pg MCHC (31.7-36.0) g/dL RDW (11.2-14.1) % Plt Count (150-350) K/uL Neut % (Auto) (45.0-80.0) % Lymph % (Auto) (10.0-50.0) % [place] % (Auto) (2.0-14.0) % Eos % (Auto) (0.0-5.0) % Baso % (Auto) (0.0-2.0) % Neut # (Auto) (1.40-7.00) K/uL Lymph # (Auto) (0.50-3.50) K/uL [place] # (Auto) (0.00-1.00) K/uL Eos # (Auto) (0.00-0.50) K/uL Baso # (Auto) (0.00-0.20) K/uL Sodium 136 (136-145) mmol/L Potassium 4.2 (3.5-5.1) mmol/L Chloride 105 (98-107) mmol/L Carbon Dioxide 26.8 (21.0-32.0) mmol/L Anion Gap 4.2 L (7-15) meq/L BUN 29 H (7-18) mg/dL Creatinine 1.56 H (0.51-1.17) mg/dL Est Cr Clr Drug Dosing 25.78 mL/min Estimated GFR (MDRD) 33 mL/min Glucose 256 H (70-99) mg/dL POC Glucose 221 H (70-99) mg/dL Lactic Acid 2.0 (0.4-2.0) mmol/L Calcium 8.4 L (8.5-10.1) mg/dL Magnesium 1.6 L (1.8-2.4) mg/dL Total Bilirubin 1.7 H (0.2-1.0) mg/dL AST 21 (15-37) U/L ALT 25 (12-78) U/L Alkaline Phosphatase 86 (46-116) IU/L Total Protein 6.4 (6.4-8.2) g/dL Albumin 2.6 L (3.4-5.0) g/dL 10/22/20 10/22/20 10/22/20 Range/Units 07:32 07:32 07:40 WBC 8.3 (4.0-10.2) K/uL RBC 3.49 L (3.77-5.09) M/uL Hgb 10.5 L D (11.7-15.5) g/dL Hct 31.7 L (34.0-46.0) % MCV 90.8 (84.0-98.0) fL MCH 30.1 (28.2-33.3) pg MCHC 33.1 (31.7-36.0) g/dL RDW 14.6 H (11.2-14.1) % Plt Count 108 L (150-350) K/uL Neut % (Auto) 76.9 (45.0-80.0) % Lymph % (Auto) 13.0 (10.0-50.0) % [place] % (Auto) 8.7 (2.0-14.0) % Eos % (Auto) 1.2 (0.0-5.0) % Baso % (Auto) 0.2 (0.0-2.0) % Neut # (Auto) 6.37 (1.40-7.00) K/uL Lymph # (Auto) 1.08 (0.50-3.50) K/uL [place] # (Auto) 0.72 (0.00-1.00) K/uL Eos # (Auto) 0.10 (0.00-0.50) K/uL Baso # (Auto) 0.02 (0.00-0.20) K/uL Sodium (136-145) mmol/L Potassium (3.5-5.1) mmol/L Chloride (98-107) mmol/L Carbon Dioxide (21.0-32.0) mmol/L Anion Gap (7-15) meq/L BUN (7-18) mg/dL Creatinine (0.51-1.17) mg/dL Est Cr Clr Drug Dosing mL/min Estimated GFR (MDRD) mL/min Glucose (70-99) mg/dL POC Glucose 243 H (70-99) mg/dL Lactic Acid 1.6 (0.4-2.0) mmol/L Calcium (8.5-10.1) mg/dL Magnesium (1.8-2.4) mg/dL Total Bilirubin (0.2-1.0) mg/dL AST (15-37) U/L ALT (12-78) U/L Alkaline Phosphatase (46-116) IU/L Total Protein (6.4-8.2) g/dL Albumin (3.4-5.0) g/dL 10/22/20 10/22/20 Range/Units 11:26 17:08 WBC (4.0-10.2) K/uL RBC (3.77-5.09) M/uL Hgb (11.7-15.5) g/dL Hct (34.0-46.0) % MCV (84.0-98.0) fL MCH (28.2-33.3) pg MCHC (31.7-36.0) g/dL RDW (11.2-14.1) % Plt Count (150-350) K/uL Neut % (Auto) (45.0-80.0) % Lymph % (Auto) (10.0-50.0) % [place] % (Auto) (2.0-14.0) % Eos % (Auto) (0.0-5.0) % Baso % (Auto) (0.0-2.0) % Neut # (Auto) (1.40-7.00) K/uL Lymph # (Auto) (0.50-3.50) K/uL [place] # (Auto) (0.00-1.00) K/uL Eos # (Auto) (0.00-0.50) K/uL Baso # (Auto) (0.00-0.20) K/uL Sodium (136-145) mmol/L Potassium (3.5-5.1) mmol/L Chloride (98-107) mmol/L Carbon Dioxide (21.0-32.0) mmol/L Anion Gap (7-15) meq/L BUN (7-18) mg/dL Creatinine (0.51-1.17) mg/dL Est Cr Clr Drug Dosing mL/min Estimated GFR (MDRD) mL/min Glucose (70-99) mg/dL POC Glucose 220 H 256 H (70-99) mg/dL Lactic Acid (0.4-2.0) mmol/L Calcium (8.5-10.1) mg/dL Magnesium (1.8-2.4) mg/dL Total Bilirubin (0.2-1.0) mg/dL AST (15-37) U/L ALT (12-78) U/L Alkaline Phosphatase (46-116) IU/L Total Protein (6.4-8.2) g/dL Albumin (3.4-5.0) g/dL Result Diagrams: 10/22/20 07:32 10/22/20 07:32 Andi Results Last 24 hrs: Microbiology 10/21/20 17:32 Aerobic Blood Culture - Preliminary Blood - Venous NO GROWTH AFTER 1 DAY Anaerobic Blood Culture - Preliminary NO GROWTH AFTER 1 DAY 10/21/20 17:32 Aerobic Blood Culture - Preliminary Blood - Venous - Lab Draw NO GROWTH AFTER 1 DAY Anaerobic Blood Culture - Preliminary NO GROWTH AFTER 1 DAY Sepsis Event Note - Evaluation Sepsis Screening Result: Possible Sepsis Risk - Focused Exam Vital Signs: Vital Signs Temp Temp Pulse Pulse Resp BP BP 10/22/20 18:04 37.9 C 10/22/20 16:54 38.7 C H 86 18 109/62 10/22/20 12:00 37.6 C 80 16 10/22/20 08:00 37.7 C 97 20 10/22/20 07:59 97 127/72 10/22/20 07:58 127/72 BP Pulse Ox 10/22/20 18:04 10/22/20 16:54 92 L 10/22/20 12:00 127/72 95 10/22/20 08:00 127/72 93 L 10/22/20 07:59 10/22/20 07:58 - Problem List & Annotations (1) Right middle lobe pneumonia SNOMED Code(s): 677814338 Code(s): J18.9 - PNEUMONIA, UNSPECIFIED ORGANISM Status: Acute Priority: High Current Visit: Yes Onset Date: ~10/19/20 Qualifiers: Pneumonia type: due to unspecified organism Qualified Code(s): J18.9 - Pneumonia, unspecified organism Annotation/Comment:: Right middle lobe pneumonia. Started on IV Rocephin and Zithromax. Blood cultures pending. (2) Confusion SNOMED Code(s): 302834370 Code(s): R41.0 - DISORIENTATION, UNSPECIFIED Status: Acute Priority: High Current Visit: Yes Annotation/Comment:: reports patient has been intermittently mildly confused for a number of months since starting Gabapentin. Much more pronounced confusion last several days since developing symptoms of pneumonia. Very confused at time of admission but significant improvement as of 10/22 recheck. Recommended to to discuss formal cognitive testing referral with patient's primary or possibly holding Gabapentin to see if the chronic low grade memory issues improve. To follow up with PCP after discharge regarding this. (3) Lactic acid increased SNOMED Code(s): 89950320 Code(s): E87.2 - ACIDOSIS Status: Acute Priority: High Current Visit: Yes Annotation/Comment:: Blood cultures pending/currently negative. Lactic acid normalized with rechecked last evening. (4) Creatinine elevation SNOMED Code(s): 927423341, 131281139 Code(s): R79.89 - OTHER SPECIFIED ABNORMAL FINDINGS OF BLOOD CHEMISTRY Status: Acute Priority: Medium Current Visit: Yes Annotation/Comment:: Suspect some degree of dehydration. Improved after IV fluids. Patient recalls today that she has been told that she has chronic renal insufficiency. Pharmacy recommended that we hold Metformin for now. (5) Hypomagnesemia SNOMED Code(s): 468779007 Code(s): E83.42 - HYPOMAGNESEMIA Status: Chronic Priority: Medium Current Visit: Yes Annotation/Comment:: Magnesium replacement initiated. Still low as of today. Continue replacement therapy. Patient will benefit from increased PO Magnesium supplement dosing at time of discharge. (6) D-dimer, elevated SNOMED Code(s): 656363270 Code(s): R79.89 - OTHER SPECIFIED ABNORMAL FINDINGS OF BLOOD CHEMISTRY Status: Acute Priority: Medium Current Visit: Yes Annotation/Comment:: No evidence of DVTs. Patient denies acute increase SOB. Normal respiratory rate. O2 sats mid 90s on room air. Patient and decline further evaluation at this time. Patient would require VQ scan if creatinine remains elevated. (7) Hyperbilirubinemia SNOMED Code(s): 13937113 Code(s): E80.6 - OTHER DISORDERS OF BILIRUBIN METABOLISM Status: Chronic Priority: Low Current Visit: Yes Annotation/Comment:: History of chronic non-alcoholic liver disease per record. (8) HTN (hypertension) SNOMED Code(s): 92054233 Code(s): I10 - ESSENTIAL (PRIMARY) HYPERTENSION Status: Chronic Priority: Low Current Visit: No Qualifiers: Hypertension type: primary hypertension Qualified Code(s): I10 - Essential (primary) hypertension Annotation/Comment:: observe trends. Has been stable (9) Hyperlipidemia SNOMED Code(s): 18791120 Code(s): E78.5 - HYPERLIPIDEMIA, UNSPECIFIED Status: Chronic Priority: Low Current Visit: No Qualifiers: Hyperlipidemia type: unspecified Qualified Code(s): E78.5 - Hyperlipidemia, unspecified Annotation/Comment:: stable per history (10) COPD (chronic obstructive pulmonary disease) SNOMED Code(s): 74417202 Code(s): J44.9 - CHRONIC OBSTRUCTIVE PULMONARY DISEASE, UNSPECIFIED Status: Chronic Priority: Low Current Visit: Yes Qualifiers: COPD type: unspecified COPD Qualified Code(s): J44.9 - Chronic obstructive pulmonary disease, unspecified Annotation/Comment:: No symptoms suggestive of acute exacerbation at this time. (11) Sleep apnea SNOMED Code(s): 31301267 Code(s): G47.30 - SLEEP APNEA, UNSPECIFIED Status: Chronic Priority: Low Current Visit: No Qualifiers: Sleep apnea type: unspecified type Qualified Code(s): G47.30 - Sleep apnea, unspecified Annotation/Comment:: Patient does not use CPAP at this time due to her CPAP being recalled and so far unable to obtain a new unit. (12) GERD (gastroesophageal reflux disease) SNOMED Code(s): 702387525 Code(s): K21.9 - GASTRO-ESOPHAGEAL REFLUX DISEASE WITHOUT ESOPHAGITIS Status: Chronic Priority: Low Current Visit: No Qualifiers: Esophagitis presence: esophagitis presence not specified Qualified Code(s): K21.9 - Gastro-esophageal reflux disease without esophagitis Annotation/Comment:: stable per history (13) Nonalcoholic liver disease, chronic SNOMED Code(s): 37451309 Code(s): K76.9 - LIVER DISEASE, UNSPECIFIED Status: Chronic Priority: Low Current Visit: No (14) Osteoarthritis SNOMED Code(s): 198358577 Code(s): M19.90 - UNSPECIFIED OSTEOARTHRITIS, UNSPECIFIED SITE Status: Chronic Priority: Low Current Visit: No Qualifiers: Osteoarthritis location: unspecified site Annotation/Comment:: stable per history (15) DM type 2 (diabetes mellitus, type 2) SNOMED Code(s): 96127623 Code(s): E11.9 - TYPE 2 DIABETES MELLITUS WITHOUT COMPLICATIONS Status: Chronic Priority: Low Current Visit: Yes Qualifiers: Diabetes mellitus correction insulin use: with correction use Annotation/Comment:: accuchecks ordered. Sliding scale insulin ordered. - Problem List Review Problem List Initiated/Reviewed/Updated: Yes - My Orders Last 24 Hours: My Active Orders 10/21/20 18:23 Sodium Chloride 0.9% [Saline Flush] 10 ml FLUSH ASDIRECTED PRN Saline Lock Insert [OM.PC] Routine 10/21/20 20:56 Patient Status [ADT] Routine Blood Glucose Check, Bedside [RC] QIDACANDBED Height and Weight [RC] DAILY May Shower [RC] ASDIRECTED Oxygen Therapy [RC] PRN Up With Assistance [RC] ASDIRECTED VTE/DVT Education [RC] PER UNIT ROUTINE Vital Signs [RC] Q4HR OT Evaluation and Treatment [CONS] Routine PT Evaluation and Treatment [CONS] Routine Resuscitation Status Routine 10/21/20 20:57 Intake and Output [RC] 06,18 Pulse Oximetry [RC] PRN 10/21/20 20:59 LORazepam [Ativan] 0.5 mg IVPUSH Q4H PRN 10/21/20 21:00 Sodium Chloride 0.9% [Normal Saline] 1,000 ml IV ASDIRECTED 10/21/20 21:09 polyethylene glycoL 3350 [MiraLAX] 17 gm PO DAILY PRN 10/21/20 21:12 Dextrose 50% in Water 50 ml IVPUSH ASDIRECTED PRN Glucagon,Human Recombinant [GlucaGen] 1 mg IM ASDIRECTED PRN 10/21/20 21:15 Enoxaparin [Lovenox] 30 mg SUBCUT Q24H 10/21/20 21:18 Consult to Case Management/Director Of Strategic Programs [CONS] Routine 10/22/20 00:49 Dextromethorphan/guaiFENesin [Robitussin DM] 10 ml PO Q4H PRN 10/22/20 01:00 Acetaminophen [TylenoL] 650 mg PO Q4H PRN 10/22/20 05:00 RT Post Treatment Assessment [RC] Click to Edit RT Pre-Treatment Assessment [RC] Click to Edit Albuterol [Proventil HFA] See Dose Instructions INH Q4H PRN 10/22/20 Breakfast [employer] Diet [DIET] Insulin Lispro [HumaLOG] See Protocol SUBCUT BIDAC 10/22/20 08:00 Albuterol [Proventil HFA] See Dose Instructions INH QID Aspirin [Halfprin] 81 mg PO DAILY HCTZ/Triamterene [Maxzide 50-75 MG] 0.5 each PO DAILY Metoprolol Succinate [Toprol XL] 100 mg PO DAILY atorvaSTATin [Lipitor] 40 mg PO DAILY buPROPion [Wellbutrin XL] 150 mg PO DAILY lisinopriL [Prinivil] 20 mg PO DAILY 10/22/20 09:00 cefTRIAXone [Rocephin] 1 gm Sodium Chloride 0.9% [Normal Saline] 100 ml IV Q24H 10/22/20 16:00 Azithromycin [Zithromax] 500 mg Sodium Chloride 0.9% [Normal Saline] 250 ml IV Q24H 10/22/20 16:44 Ondansetron [Zofran] 4 mg IVPUSH Q6H PRN 10/22/20 19:03 Magnesium Sulfate/D5W [Magnesium Sulfate in D5W 1 GM/100 ML] 1 gm Premix Bag 1 bag IV ONETIME 10/23/20 05:11 CBC WITH AUTO DIFF [HEME] AM COMPREHENSIVE METABOLIC PN,CMP [CHEM] AM LACTIC ACID [CHEM] AM MAGNESIUM [CHEM] AM 10/23/20 07:00 Magnesium Sulfate/D5W [Magnesium Sulfate in D5W 1 GM/100 ML] 1 gm Premix Bag 1 bag IV ONETIME - Assessment Assessment:: as above. - Plan Plan:: as above. Anticipate an additional 2-3 days inpatient care over the weekend for continued IV antibiotics with continuation of oral antibiotics at time of discharge. Continue to follow Magnesium levels and renal function.
[2020-10-22] MEDS ORDERED: LORazepam 2 MG/ML SDV IVPUSH PRN (19:24)
[2020-10-22] MEDS: Enoxaparin 30 MG/0.3 ML Syringe SUBCUT SCH (22:25)
[2020-10-23] MEDS: Albuterol 6.7 GM Inhaler INH SCH ×4 (07:31→20:07)
[2020-10-23] MEDS: atorvaSTATin 40 MG Tab PO SCH (07:32)
[2020-10-23] MEDS: Aspirin 81 MG Tab.EC PO SCH (07:35)
[2020-10-23] MEDS: Metoprolol Succinate 50 MG Tab.ER PO SCH (07:35)
[2020-10-23] MEDS: Insulin Lispro 100 Units/ML 3 ML Vial SUBCUT SCH ×3 (07:36→17:38)
[2020-10-23 08:14] LABS: ANION GAP 6.2 meq/L (7-15)
[2020-10-23] MEDS: Polyethylene Glycol 3350 Powder 17 GM Packet PO PRN (08:28)
[2020-10-23] MEDS: cefTRIAXone 1 GM in Sodium Chloride 0.9% 100 ML IV SCH (08:28)
[2020-10-23] MEDS: buPROPion 150 MG Tab.ER PO SCH ×2 (09:04→09:51)
[2020-10-23] MEDS: Hydrochlorothiazide/Triamterene 50-75 MG Tab PO SCH (09:50)
[2020-10-23] MEDS: Lisinopril 20 MG Tab PO SCH (09:51)
[2020-10-23] MEDS: guaiFENesin/Dextromethorphan 100-10 MG/5 ML Soln 10 ML Cup PO PRN (09:51)
[2020-10-23] MEDS: Magnesium Oxide 400 MG Tab PO SCH ×2 (09:51→17:37)
--- NOTE | 2020-10-23 09:51 | PCM.PN ---
- General Info Date of Service: 10/23/20 Admission Dx/Problem (Free Text): Right middle lobe pneumonia, low Magnesium Subjective Update: Patient feeling better today. No specific focal complaints when asked. Functional Status: Reports: Pain Controlled, Tolerating Diet, Ambulating, Urinating. Denies: New Symptoms - Review of Systems General: Denies: Fever, Weakness, Malaise, Chills, Night Sweats HEENT: Reports: Other (no acute changes) Pulmonary: Reports: Cough. Denies: Shortness of Breath, Pleuritic Chest Pain, Sputum, Hemoptysis, Wheezing Cardiovascular: Reports: No Symptoms Gastrointestinal: Reports: No Symptoms Genitourinary: Reports: No Symptoms Musculoskeletal: Reports: Other (no acute changes) Skin: Reports: No Symptoms Neurological: Reports: Other (denies acute changes) Psychiatric: Reports: Confusion (intermittent confusion noted during stay). Denies: Depression, Mood Lability, Anxiety, Agitation, Hallucinations - Patient Data Vitals - Most Recent: Last Vital Signs Temp 37.3 C 10/23/20 07:35 Pulse 80 10/23/20 07:35 Resp 20 10/23/20 07:35 BP 103/51 L 10/23/20 08:31 Pulse Ox 94 L 10/23/20 07:35 Weight - Most Recent: 113.489 kg I&O - Last 24 Hours: Intake & Output 10/22/20 10/23/20 10/23/20 22:59 06:59 14:59 Intake Total 2050 706 360 Output Total 200 1100 Balance 1850 -394 360 Lab Results Last 24 Hours: Laboratory Results - last 24 hr 10/22/20 10/22/20 10/22/20 Range/Units 11:26 17:08 20:47 WBC (4.0-10.2) K/uL RBC (3.77-5.09) M/uL Hgb (11.7-15.5) g/dL Hct (34.0-46.0) % MCV (84.0-98.0) fL MCH (28.2-33.3) pg MCHC (31.7-36.0) g/dL RDW (11.2-14.1) % Plt Count (150-350) K/uL Neut % (Auto) (45.0-80.0) % Lymph % (Auto) (10.0-50.0) % [place] % (Auto) (2.0-14.0) % Eos % (Auto) (0.0-5.0) % Baso % (Auto) (0.0-2.0) % Neut # (Auto) (1.40-7.00) K/uL Lymph # (Auto) (0.50-3.50) K/uL [place] # (Auto) (0.00-1.00) K/uL Eos # (Auto) (0.00-0.50) K/uL Baso # (Auto) (0.00-0.20) K/uL Sodium (136-145) mmol/L Potassium (3.5-5.1) mmol/L Chloride (98-107) mmol/L Carbon Dioxide (21.0-32.0) mmol/L Anion Gap (7-15) meq/L BUN (7-18) mg/dL Creatinine (0.51-1.17) mg/dL Est Cr Clr Drug Dosing mL/min Estimated GFR (MDRD) mL/min Glucose (70-99) mg/dL POC Glucose 220 H 256 H 263 H (70-99) mg/dL Lactic Acid (0.4-2.0) mmol/L Calcium (8.5-10.1) mg/dL Magnesium (1.8-2.4) mg/dL Total Bilirubin (0.2-1.0) mg/dL AST (15-37) U/L ALT (12-78) U/L Alkaline Phosphatase (46-116) IU/L Total Protein (6.4-8.2) g/dL Albumin (3.4-5.0) g/dL 10/23/20 10/23/20 10/23/20 Range/Units 07:35 07:36 07:36 WBC 7.2 (4.0-10.2) K/uL RBC 3.40 L (3.77-5.09) M/uL Hgb 10.1 L (11.7-15.5) g/dL Hct 30.8 L (34.0-46.0) % MCV 90.6 (84.0-98.0) fL MCH 29.7 (28.2-33.3) pg MCHC 32.8 (31.7-36.0) g/dL RDW 14.3 H (11.2-14.1) % Plt Count 122 L (150-350) K/uL Neut % (Auto) 67.9 (45.0-80.0) % Lymph % (Auto) 16.6 (10.0-50.0) % [place] % (Auto) 10.8 (2.0-14.0) % Eos % (Auto) 4.4 (0.0-5.0) % Baso % (Auto) 0.3 (0.0-2.0) % Neut # (Auto) 4.92 (1.40-7.00) K/uL Lymph # (Auto) 1.20 (0.50-3.50) K/uL [place] # (Auto) 0.78 (0.00-1.00) K/uL Eos # (Auto) 0.32 (0.00-0.50) K/uL Baso # (Auto) 0.02 (0.00-0.20) K/uL Sodium 136 (136-145) mmol/L Potassium 4.5 (3.5-5.1) mmol/L Chloride 105 (98-107) mmol/L Carbon Dioxide 24.8 (21.0-32.0) mmol/L Anion Gap 6.2 L (7-15) meq/L BUN 23 H (7-18) mg/dL Creatinine 1.40 H (0.51-1.17) mg/dL Est Cr Clr Drug Dosing 28.73 mL/min Estimated GFR (MDRD) 37 mL/min Glucose 237 H (70-99) mg/dL POC Glucose 229 H (70-99) mg/dL Lactic Acid (0.4-2.0) mmol/L Calcium 8.6 (8.5-10.1) mg/dL Magnesium 1.9 (1.8-2.4) mg/dL Total Bilirubin 0.9 (0.2-1.0) mg/dL AST 33 (15-37) U/L ALT 28 (12-78) U/L Alkaline Phosphatase 87 (46-116) IU/L Total Protein 6.3 L (6.4-8.2) g/dL Albumin 2.4 L (3.4-5.0) g/dL 10/23/20 Range/Units 07:36 WBC (4.0-10.2) K/uL RBC (3.77-5.09) M/uL Hgb (11.7-15.5) g/dL Hct (34.0-46.0) % MCV (84.0-98.0) fL MCH (28.2-33.3) pg MCHC (31.7-36.0) g/dL RDW (11.2-14.1) % Plt Count (150-350) K/uL Neut % (Auto) (45.0-80.0) % Lymph % (Auto) (10.0-50.0) % [place] % (Auto) (2.0-14.0) % Eos % (Auto) (0.0-5.0) % Baso % (Auto) (0.0-2.0) % Neut # (Auto) (1.40-7.00) K/uL Lymph # (Auto) (0.50-3.50) K/uL [place] # (Auto) (0.00-1.00) K/uL Eos # (Auto) (0.00-0.50) K/uL Baso # (Auto) (0.00-0.20) K/uL Sodium (136-145) mmol/L Potassium (3.5-5.1) mmol/L Chloride (98-107) mmol/L Carbon Dioxide (21.0-32.0) mmol/L Anion Gap (7-15) meq/L BUN (7-18) mg/dL Creatinine (0.51-1.17) mg/dL Est Cr Clr Drug Dosing mL/min Estimated GFR (MDRD) mL/min Glucose (70-99) mg/dL POC Glucose (70-99) mg/dL Lactic Acid 1.5 (0.4-2.0) mmol/L Calcium (8.5-10.1) mg/dL Magnesium (1.8-2.4) mg/dL Total Bilirubin (0.2-1.0) mg/dL AST (15-37) U/L ALT (12-78) U/L Alkaline Phosphatase (46-116) IU/L Total Protein (6.4-8.2) g/dL Albumin (3.4-5.0) g/dL Andi Results Last 24 Hours: Microbiology 10/21/20 17:32 Aerobic Blood Culture - Preliminary Blood - Venous NO GROWTH AFTER 1 DAY Anaerobic Blood Culture - Preliminary NO GROWTH AFTER 1 DAY 10/21/20 17:32 Aerobic Blood Culture - Preliminary Blood - Venous - Lab Draw NO GROWTH AFTER 1 DAY Anaerobic Blood Culture - Preliminary NO GROWTH AFTER 1 DAY Med Orders - Current: Current Medications Acetaminophen (Acetaminophen 325 Mg Tab) 650 mg PO Q4H PRN PRN Reason: Fever Last Admin: 10/22/20 17:01 Dose: 650 mg Documented by: Albuterol (Albuterol 6.7 Gm Inhaler) 0 gm INH QID SHARIF Last Admin: 10/23/20 07:31 Dose: 2 puff Documented by: Albuterol (Albuterol 6.7 Gm Inhaler) 0 gm INH Q4H PRN PRN Reason: Dyspnea Last Admin: 10/22/20 05:06 Dose: 2 puff Documented by: Aspirin (Aspirin 81 Mg Tab.Ec) 81 mg PO DAILY [facility] Last Admin: 10/23/20 07:35 Dose: 81 mg Documented by: Atorvastatin Calcium (Atorvastatin 40 Mg Tab) 40 mg PO DAILY [facility] Last Admin: 10/23/20 07:32 Dose: 40 mg Documented by: Bupropion HCl (Bupropion 150 Mg Tab.Er) 300 mg PO DAILY [facility] Dextrose/Water (50% Dextrose In Water 50 Ml Syringe) 50 ml IVPUSH ASDIRECTED PRN PRN Reason: Hypoglycemia Enoxaparin Sodium (Enoxaparin 30 Mg/0.3 Ml Syringe) 30 mg SUBCUT Q24H [facility] Last Admin: 10/22/20 22:25 Dose: 30 mg Documented by: Glucagon (Glucagon,Human Recombinant 1 Mg Vial) 1 mg IM ASDIRECTED PRN PRN Reason: Hypoglycemia Guaifenesin/Dextromethorphan (Guaifenesin/Dextromethorphan 100-10 Mg/5 Ml Soln 10 Ml Cup) 10 ml PO Q4H PRN PRN Reason: Cough Last Admin: 10/22/20 11:53 Dose: 10 ml Documented by: Azithromycin 500 mg/ Sodium (Chloride) 250 mls @ 250 mls/hr IV Q24H [facility] Last Admin: 10/22/20 16:01 Dose: 250 mls/hr Documented by: Ceftriaxone Sodium 1 gm/ (Sodium Chloride) 100 mls @ 200 mls/hr IV Q24H [facility] Last Admin: 10/23/20 08:28 Dose: 200 mls/hr Documented by: Insulin Human Lispro (Insulin Lispro 100 Units/Ml 3 Ml Vial) 0 unit SUBCUT TIDAC [facility]; Protocol Last Admin: 10/23/20 07:36 Dose: 4 units Documented by: Lisinopril (Lisinopril 20 Mg Tab) 20 mg PO DAILY [facility] Last Admin: 10/22/20 07:58 Dose: 20 mg Documented by: Magnesium Oxide (Magnesium Oxide 400 Mg Tab) 400 mg PO BID [facility] Metoprolol Succinate (Metoprolol Succinate 50 Mg Tab.Er) 100 mg PO DAILY [facility] Last Admin: 10/23/20 07:35 Dose: 100 mg Documented by: Ondansetron HCl (Ondansetron 4 Mg/2 Ml Sdv) 4 mg IVPUSH Q6H PRN PRN Reason: Nausea Last Admin: 10/22/20 17:05 Dose: 4 mg Documented by: Polyethylene Glycol (Polyethylene Glycol 3350 Powder 17 Gm Packet) 17 gm PO DAILY PRN PRN Reason: Constipation Last Admin: 10/23/20 08:28 Dose: 17 gm Documented by: Sodium Chloride (Sodium Chloride 0.9% 10 Ml Syringe) 10 ml FLUSH ASDIRECTED PRN PRN Reason: Keep Vein Open Last Admin: 10/22/20 17:06 Dose: 10 ml Documented by: Triamterene/Hydrochlorothiazide (Hydrochlorothiazide/Triamterene 50-75 Mg Tab) 0.5 each PO DAILY [facility] Last Admin: 10/22/20 07:59 Dose: 0.5 each Documented by: Discontinued Medications Acetaminophen (Acetaminophen 325 Mg Tab) 650 mg PO NOW ONE Stop: 10/21/20 18:47 Last Admin: 10/21/20 19:46 Dose: 650 mg Documented by: Azithromycin (Azithromycin 250 Mg Tab) 500 mg PO ONETIME ONE Stop: 10/21/20 18:14 Last Admin: 10/21/20 18:36 Dose: Not Given Documented by: Bupropion HCl (Bupropion 150 Mg Tab.Er) 150 mg PO DAILY [facility] Last Admin: 10/23/20 09:04 Dose: Not Given Documented by: Ceftriaxone Sodium (Ceftriaxone 1 Gm Vial) 1 gm IM ONETIME ONE Stop: 10/21/20 18:13 Last Admin: 10/21/20 18:36 Dose: Not Given Documented by: Azithromycin 500 mg/ Sodium (Chloride) 250 mls @ 250 mls/hr IV ONETIME ONE Stop: 10/21/20 19:20 Last Admin: 10/21/20 19:45 Dose: 250 mls/hr Documented by: Ceftriaxone Sodium 1 gm/ (Sodium Chloride) 100 mls @ 200 mls/hr IV ONETIME ONE Stop: 10/21/20 18:51 Last Admin: 10/21/20 18:44 Dose: 200 mls/hr Documented by: Sodium Chloride (Normal Saline) 500 mls @ 250 mls/hr IV .BOLUS SHARIF Last Admin: 10/21/20 22:02 Dose: 250 mls/hr Documented by: Magnesium Sulfate/Dextrose 1 (gm/ Premix) 100 mls @ 100 mls/hr IV ONETIME ONE Stop: 10/21/20 19:22 Last Admin: 10/21/20 20:56 Dose: 100 mls/hr Documented by: Sodium Chloride (Normal Saline) 1,000 mls @ 50 mls/hr IV ASDIRECTED SHARIF Last Admin: 10/22/20 20:45 Dose: 50 mls/hr Documented by: Magnesium Sulfate/Dextrose 1 (gm/ Premix) 100 mls @ 100 mls/hr IV ONETIME ONE Stop: 10/22/20 20:02 Last Admin: 10/22/20 20:42 Dose: 100 mls/hr Documented by: Magnesium Sulfate/Dextrose 1 (gm/ Premix) 100 mls @ 100 mls/hr IV ONETIME ONE Stop: 10/23/20 07:59 Last Admin: 10/23/20 08:28 Dose: Not Given Documented by: Insulin Human Lispro (Insulin Lispro 100 Units/Ml 3 Ml Vial) 0 unit SUBCUT BIDAC [facility]; Protocol Last Admin: 10/22/20 17:16 Dose: 6 unit Documented by: Lorazepam (Lorazepam 2 Mg/Ml Sdv) 0.5 mg IVPUSH Q4H PRN PRN Reason: Agitation Lorazepam (Lorazepam 2 Mg/Ml Sdv) 0.5 mg IVPUSH Q8H PRN PRN Reason: Agitation Metformin HCl (Metformin 500 Mg Tab) 1,000 mg PO BID SHARIF Omeprazole (Omeprazole 20 Mg Cap.Cr) 20 mg PO Q48H SHARIF Last Admin: 10/21/20 23:11 Dose: Not Given Documented by: Ondansetron HCl (Ondansetron 4 Mg/2 Ml Sdv) Confirm Administered Dose 4 mg .ROUTE .STK-MED ONE Stop: 10/22/20 17:00 Last Admin: 10/22/20 17:17 Dose: Not Given Documented by: Pantoprazole Sodium (Pantoprazole 40 Mg Vial) 40 mg IVPUSH ONETIME ONE Stop: 10/22/20 16:34 Last Admin: 10/22/20 17:01 Dose: 40 mg Documented by: - Exam Quality Assessment: DVT Prophylaxis General: Alert, Oriented, Cooperative, No Acute Distress HEENT: Pupils Equal, Pupils Reactive, EOMI, Mucous Membr. Moist/[place] Neck: Supple Lungs: Clear to Auscultation, Normal Respiratory Effort Cardiovascular: Regular Rate, Regular Rhythm GI/Abdominal Exam: Normal Bowel Sounds, Soft, Non-Tender, Other (obese abdomen) (Female) Exam: Deferred Back Exam: No: CVA Tenderness (L), CVA Tenderness (R), Muscle Spasm, Paraspinal Tenderness, Vertebral Tenderness Extremities: Non-Tender, No Pedal Edema, Normal Capillary Refill, Other (moves all 4 ) Skin: Warm, Dry Neurological: No New Focal Deficit Psy/Mental Status: Alert, Normal Affect, Normal Mood - Patient Data Lab Results Last 24 hrs: Laboratory Results - last 24 hr 10/22/20 10/22/20 10/22/20 Range/Units 11:26 17:08 20:47 WBC (4.0-10.2) K/uL RBC (3.77-5.09) M/uL Hgb (11.7-15.5) g/dL Hct (34.0-46.0) % MCV (84.0-98.0) fL MCH (28.2-33.3) pg MCHC (31.7-36.0) g/dL RDW (11.2-14.1) % Plt Count (150-350) K/uL Neut % (Auto) (45.0-80.0) % Lymph % (Auto) (10.0-50.0) % [place] % (Auto) (2.0-14.0) % Eos % (Auto) (0.0-5.0) % Baso % (Auto) (0.0-2.0) % Neut # (Auto) (1.40-7.00) K/uL Lymph # (Auto) (0.50-3.50) K/uL [place] # (Auto) (0.00-1.00) K/uL Eos # (Auto) (0.00-0.50) K/uL Baso # (Auto) (0.00-0.20) K/uL Sodium (136-145) mmol/L Potassium (3.5-5.1) mmol/L Chloride (98-107) mmol/L Carbon Dioxide (21.0-32.0) mmol/L Anion Gap (7-15) meq/L BUN (7-18) mg/dL Creatinine (0.51-1.17) mg/dL Est Cr Clr Drug Dosing mL/min Estimated GFR (MDRD) mL/min Glucose (70-99) mg/dL POC Glucose 220 H 256 H 263 H (70-99) mg/dL Lactic Acid (0.4-2.0) mmol/L Calcium (8.5-10.1) mg/dL Magnesium (1.8-2.4) mg/dL Total Bilirubin (0.2-1.0) mg/dL AST (15-37) U/L ALT (12-78) U/L Alkaline Phosphatase (46-116) IU/L Total Protein (6.4-8.2) g/dL Albumin (3.4-5.0) g/dL 10/23/20 10/23/20 10/23/20 Range/Units 07:35 07:36 07:36 WBC 7.2 (4.0-10.2) K/uL RBC 3.40 L (3.77-5.09) M/uL Hgb 10.1 L (11.7-15.5) g/dL Hct 30.8 L (34.0-46.0) % MCV 90.6 (84.0-98.0) fL MCH 29.7 (28.2-33.3) pg MCHC 32.8 (31.7-36.0) g/dL RDW 14.3 H (11.2-14.1) % Plt Count 122 L (150-350) K/uL Neut % (Auto) 67.9 (45.0-80.0) % Lymph % (Auto) 16.6 (10.0-50.0) % [place] % (Auto) 10.8 (2.0-14.0) % Eos % (Auto) 4.4 (0.0-5.0) % Baso % (Auto) 0.3 (0.0-2.0) % Neut # (Auto) 4.92 (1.40-7.00) K/uL Lymph # (Auto) 1.20 (0.50-3.50) K/uL [place] # (Auto) 0.78 (0.00-1.00) K/uL Eos # (Auto) 0.32 (0.00-0.50) K/uL Baso # (Auto) 0.02 (0.00-0.20) K/uL Sodium 136 (136-145) mmol/L Potassium 4.5 (3.5-5.1) mmol/L Chloride 105 (98-107) mmol/L Carbon Dioxide 24.8 (21.0-32.0) mmol/L Anion Gap 6.2 L (7-15) meq/L BUN 23 H (7-18) mg/dL Creatinine 1.40 H (0.51-1.17) mg/dL Est Cr Clr Drug Dosing 28.73 mL/min Estimated GFR (MDRD) 37 mL/min Glucose 237 H (70-99) mg/dL POC Glucose 229 H (70-99) mg/dL Lactic Acid (0.4-2.0) mmol/L Calcium 8.6 (8.5-10.1) mg/dL Magnesium 1.9 (1.8-2.4) mg/dL Total Bilirubin 0.9 (0.2-1.0) mg/dL AST 33 (15-37) U/L ALT 28 (12-78) U/L Alkaline Phosphatase 87 (46-116) IU/L Total Protein 6.3 L (6.4-8.2) g/dL Albumin 2.4 L (3.4-5.0) g/dL 10/23/20 Range/Units 07:36 WBC (4.0-10.2) K/uL RBC (3.77-5.09) M/uL Hgb (11.7-15.5) g/dL Hct (34.0-46.0) % MCV (84.0-98.0) fL MCH (28.2-33.3) pg MCHC (31.7-36.0) g/dL RDW (11.2-14.1) % Plt Count (150-350) K/uL Neut % (Auto) (45.0-80.0) % Lymph % (Auto) (10.0-50.0) % [place] % (Auto) (2.0-14.0) % Eos % (Auto) (0.0-5.0) % Baso % (Auto) (0.0-2.0) % Neut # (Auto) (1.40-7.00) K/uL Lymph # (Auto) (0.50-3.50) K/uL [place] # (Auto) (0.00-1.00) K/uL Eos # (Auto) (0.00-0.50) K/uL Baso # (Auto) (0.00-0.20) K/uL Sodium (136-145) mmol/L Potassium (3.5-5.1) mmol/L Chloride (98-107) mmol/L Carbon Dioxide (21.0-32.0) mmol/L Anion Gap (7-15) meq/L BUN (7-18) mg/dL Creatinine (0.51-1.17) mg/dL Est Cr Clr Drug Dosing mL/min Estimated GFR (MDRD) mL/min Glucose (70-99) mg/dL POC Glucose (70-99) mg/dL Lactic Acid 1.5 (0.4-2.0) mmol/L Calcium (8.5-10.1) mg/dL Magnesium (1.8-2.4) mg/dL Total Bilirubin (0.2-1.0) mg/dL AST (15-37) U/L ALT (12-78) U/L Alkaline Phosphatase (46-116) IU/L Total Protein (6.4-8.2) g/dL Albumin (3.4-5.0) g/dL Result Diagrams: 10/23/20 07:36 10/23/20 07:36 Andi Results Last 24 hrs: Microbiology 10/21/20 17:32 Aerobic Blood Culture - Preliminary Blood - Venous NO GROWTH AFTER 1 DAY Anaerobic Blood Culture - Preliminary NO GROWTH AFTER 1 DAY 10/21/20 17:32 Aerobic Blood Culture - Preliminary Blood - Venous - Lab Draw NO GROWTH AFTER 1 DAY Anaerobic Blood Culture - Preliminary NO GROWTH AFTER 1 DAY Sepsis Event Note - Evaluation Sepsis Screening Result: No Definite Risk - Focused Exam Vital Signs: Vital Signs Temp Temp Pulse Pulse Resp BP BP 10/23/20 08:31 103/51 L 10/23/20 07:35 37.3 C 80 80 20 108/35 L 10/22/20 22:30 37.5 C 78 18 BP Pulse Ox 10/23/20 08:31 10/23/20 07:35 108/35 L 94 L 10/22/20 22:30 134/51 L 95 - Problem List & Annotations (1) Right middle lobe pneumonia SNOMED Code(s): 254632469 Code(s): J18.9 - PNEUMONIA, UNSPECIFIED ORGANISM Status: Acute Priority: High Current Visit: Yes Onset Date: ~10/19/20 Qualifiers: Pneumonia type: due to unspecified organism Qualified Code(s): J18.9 - Pneumonia, unspecified organism Annotation/Comment:: Right middle lobe pneumonia. Started on IV Rocephin and Zithromax. Blood cultures in process/no growth so far. Unable to collect sputum culture. No fevers noted today. Lactic acid normalized within 6 hours of admission. Appears to be responding well to current regimen. (2) Confusion SNOMED Code(s): 509224746 Code(s): R41.0 - DISORIENTATION, UNSPECIFIED Status: Acute Priority: High Current Visit: Yes Annotation/Comment:: reports patient has been intermittently mildly confused for a number of months since starting Gabapentin. Much more pronounced confusion last several days when developing symptoms of pneumonia. Very confused at time of admission but significant improvement as of 10/22 recheck. Recommended to to discuss formal cognitive testing referral with patient's primary or possibly holding Gabapentin to see if the chronic low grade memory issues improve. To follow up with PCP after discharge regarding this. (3) Lactic acid increased SNOMED Code(s): 23646809 Code(s): E87.2 - ACIDOSIS Status: Acute Priority: High Current Visit: Yes Annotation/Comment:: Blood cultures pending/currently negative. Lactic acid normalized within 6 hours of admission (4) Creatinine elevation SNOMED Code(s): 838002238, 668139030 Code(s): R79.89 - OTHER SPECIFIED ABNORMAL FINDINGS OF BLOOD CHEMISTRY Status: Chronic Priority: Medium Current Visit: Yes Annotation/Comment:: Hx chronic renal insufficiency. Improving since admission. Pharmacy recommended that we hold Metformin for now. (5) Hypomagnesemia SNOMED Code(s): 447757488 Code(s): E83.42 - HYPOMAGNESEMIA Status: Chronic Priority: Medium Cur rent Visit: Yes Annotation/Comment:: Magnesium replacement initiated. Low normal level today. Patient will benefit from increased PO Magnesium supplement dosing at time of discharge. (6) D-dimer, elevated SNOMED Code(s): 035905364 Code(s): R79.89 - OTHER SPECIFIED ABNORMAL FINDINGS OF BLOOD CHEMISTRY Status: Acute Priority: Medium Current Visit: Yes Annotation/Comment:: No evidence of DVTs. Patient denies acute increase SOB. Normal respiratory rate. O2 sats mid 90s on room air. Patient and decline further evaluation at this time. Patient would require VQ scan depending on creatinine level. (7) HTN (hypertension) SNOMED Code(s): 06683409 Code(s): I10 - ESSENTIAL (PRIMARY) HYPERTENSION Status: Chronic Priority: Low Current Visit: No Qualifiers: Hypertension type: primary hypertension Qualified Code(s): I10 - Essential (primary) hypertension Annotation/Comment:: observe trends. Has been stable/on low side. Metoprolol held today. (8) Hyperbilirubinemia SNOMED Code(s): 40063288 Code(s): E80.6 - OTHER DISORDERS OF BILIRUBIN METABOLISM Status: Chronic Priority: Low Current Visit: Yes Annotation/Comment:: History of chronic non-alcoholic liver disease per record. (9) Hyperlipidemia SNOMED Code(s): 73739370 Code(s): E78.5 - HYPERLIPIDEMIA, UNSPECIFIED Status: Chronic Priority: Low Current Visit: No Qualifiers: Hyperlipidemia type: unspecified Qualified Code(s): E78.5 - Hyperlipidemia, unspecified Annotation/Comment:: stable per history (10) COPD (chronic obstructive pulmonary disease) SNOMED Code(s): 48126411 Code(s): J44.9 - CHRONIC OBSTRUCTIVE PULMONARY DISEASE, UNSPECIFIED Status: Chronic Priority: Low Current Visit: Yes Qualifiers: COPD type: unspecified COPD Qualified Code(s): J44.9 - Chronic obstructive pulmonary disease, unspecified Annotation/Comment:: No symptoms suggestive of acute exacerbation at this time. (11) Sleep apnea SNOMED Code(s): 55450282 Code(s): G47.30 - SLEEP APNEA, UNSPECIFIED Status: Chronic Priority: Low Current Visit: No Qualifiers: Sleep apnea type: unspecified type Qualified Code(s): G47.30 - Sleep apnea, unspecified Annotation/Comment:: Patient does not use CPAP at this time due to her CPAP being recalled and so far unable to obtain a new unit. (12) GERD (gastroesophageal reflux disease) SNOMED Code(s): 288207766 Code(s): K21.9 - GASTRO-ESOPHAGEAL REFLUX DISEASE WITHOUT ESOPHAGITIS Status: Chronic Priority: Low Current Visit: No Qualifiers: Esophagitis presence: esophagitis presence not specified Qualified Code(s): K21.9 - Gastro-esophageal reflux disease without esophagitis Annotation/Comment:: stable per history (13) Nonalcoholic liver disease, chronic SNOMED Code(s): 20175443 Code(s): K76.9 - LIVER DISEASE, UNSPECIFIED Status: Chronic Priority: Low Current Visit: No (14) Osteoarthritis SNOMED Code(s): 597280022 Code(s): M19.90 - UNSPECIFIED OSTEOARTHRITIS, UNSPECIFIED SITE Status: Chronic Priority: Low Current Visit: No Qualifiers: Osteoarthritis location: unspecified site Annotation/Comment:: stable per history (15) DM type 2 (diabetes mellitus, type 2) SNOMED Code(s): 42400733 Code(s): E11.9 - TYPE 2 DIABETES MELLITUS WITHOUT COMPLICATIONS Status: Chronic Priority: Low Current Visit: Yes Qualifiers: Diabetes mellitus terminal worker insulin use: with terminal worker use Annotation/Comment:: accuchecks ordered. Sliding scale insulin ordered. - Problem List Review Problem List Initiated/Reviewed/Updated: Yes - My Orders Last 24 Hours: My Active Orders 10/22/20 09:00 [email or web address] [Rocephin] 1 gm Sodium Chloride 0.9% [Normal Saline] 100 ml IV Q24H 10/22/20 16:00 Azithromycin [Zithromax] 500 mg Sodium Chloride 0.9% [Normal Saline] 250 ml IV Q24H 10/22/20 16:44 Ondansetron [Zofran] 4 mg IVPUSH Q6H PRN 10/23/20 07:00 Insulin Lispro [HumaLOG] See Protocol SUBCUT TIDAC 10/23/20 09:00 buPROPion [Wellbutrin XL] 300 mg PO DAILY 10/23/20 09:15 Magnesium Oxide 400 mg PO BID 10/23/20 20:00 Communication Order [RC] DAILY 10/24/20 05:11 Chest 1V Frontal [CR] AM COMPREHENSIVE METABOLIC PN,CMP [CHEM] AM DD [D-DIMER QUANTITATIVE] [COAG] AM 10/24/20 05:15 CBC WITH AUTO DIFF [HEME] AM - Assessment Assessment:: as above. - Plan Plan:: as above. Afebrile since yesterday. Given severity of illness at time of presentation/multiple medical conditions anticipate an additional 1-2 inpatient days over the weekend for continued IV antibiotics with continuation of oral antibiotics at time of discharge. Continue to follow Magnesium levels and renal function. IV fluids discontinued today.
[2020-10-23] MEDS: Sodium Chloride 0.9% 10 ML Syringe FLUSH PRN ×2 (09:53→17:39)
[2020-10-23] MEDS: Azithromycin 500 MG in Sodium Chloride 0.9% 250 ML IV SCH (17:37)
[2020-10-23] MEDS: Enoxaparin 30 MG/0.3 ML Syringe SUBCUT SCH (21:10)
[2020-10-24] MEDS: Aspirin 81 MG Tab.EC PO SCH (07:32)
[2020-10-24] MEDS: Magnesium Oxide 400 MG Tab PO SCH (07:32)
[2020-10-24] MEDS: Insulin Lispro 100 Units/ML 3 ML Vial SUBCUT SCH ×2 (07:34→12:05)
[2020-10-24] MEDS: Albuterol 6.7 GM Inhaler INH SCH ×2 (07:34→12:05)
[2020-10-24] MEDS: buPROPion 150 MG Tab.ER PO SCH (07:34)
[2020-10-24] MEDS: Lisinopril 20 MG Tab PO SCH (07:39)
[2020-10-24] MEDS: Hydrochlorothiazide/Triamterene 50-75 MG Tab PO SCH (07:39)
[2020-10-24] MEDS: atorvaSTATin 40 MG Tab PO SCH (07:39)
[2020-10-24] MEDS ORDERED: Iopamidol 755 Mg/ML 100 ML Bottle IVPUSH STA (09:40)
[2020-10-24] MEDS: Sodium Chloride 0.9% 10 ML Syringe FLUSH PRN (09:49)
[2020-10-24] MEDS: cefTRIAXone 1 GM in Sodium Chloride 0.9% 100 ML IV SCH (09:49)
[2020-10-24 09:55] LABS: ANION GAP 4.5 meq/L (7-15)
[2020-10-24] MEDS ORDERED: predniSONE 20 MG Tab PO ONE (11:39)
[2020-10-24] MEDS ORDERED: Levofloxacin 500 MG Tab PO ONE (11:39)
--- NOTE | 2020-10-24 11:47 | PCM.SN.2 ---
- Free Text/Narrative Note: Patient doing well, repeat labs today with continued elevated d dimer. Ct scan with pneumonia, right middle lobe, not blood clot. Not hypoxic with ambulation. concerned about some memory issues, concern for tia's and discussed repeat echocardiogram outpatient as no recent changes. also concern can't use c pap as no supplies due to recall. Discussed over night pulse oximetry and possible need for o2 at home, but did not desat while in the hospital. Will discharge home with levaquin and prednisone. Given oral dose prior to leaving. will follow up with PCP for resolution. has nebs at home
--- NOTE | 2020-10-24 11:59 | PCM.DCSUM1 ---
Discharge Summary - Hospital Course HPI Initial Comments: admitted for right middle lobe pneumonia, fever, leukocytosis. receiving IV antibiotics. covid negative Brief History: Patient was admitted for pneumonia. has been getting IV antibiotics, covid negative. has improved to not be hypoxic, afebrile and leukocytosis resolved. CT done to rule out PE due to escalating d dimer. negative other than right middle lobe pneumonia Will discharge home with levaquin and prednisone with outpatient follow up. Diagnosis: Stroke: No Modified Terry Scale: No Signif.Disability Despite Sympt.Able to Carry Out Usual Act./Duties Modified Terry Scale Score: 1 - Discharge Data Discharge Date: 10/24/20 Discharge Disposition: Home, Self-Care 01 Condition: Good - Referral to Home Health Primary Care Physician: PCP Unknown - Patient Summary/Data Consults: Consultations 10/21/20 20:56 OT Evaluation and Treatment [CONS] Routine PT Evaluation and Treatment [CONS] Routine 10/21/20 21:18 Consult to Case Management/[employer] [CONS] Routine Labs Pending at D/C: blood cultures Recommended Follow-up Testing/Procedures: see PCP in the next week, needs chest x-ray to ensure resolution Hospital Course: did well with iv antibiotics. No afebrile. not hypoxic - Patient Instructions Diet: Usual Diet as Tolerated Activity: As Tolerated Showering/Bathing: May Shower Other/Special Instructions: given oral antibiotics and steroid today. follow up with PCP later this week. fill prescriptions tomorrow. - Discharge Plan *PRESCRIPTION DRUG MONITORING PROGRAM REVIEWED*: Not Applicable *COPY OF PRESCRIPTION DRUG MONITORING REPORT IN PATIENT LEIF: Not Applicable Prescriptions/Med Rec: Levofloxacin [Levaquin] 500 mg PO DAILY 5 Days #5 tablet predniSONE [Prednisone] 40 mg PO DAILY 4 Days #8 tablet Home Medications: Home Meds Albuterol Sulfate [Proair Respiclick] 1 - 2 puff IH Q4H PRN 02/27/17 [History] Aspirin [Halfprin] 81 mg PO DAILY 02/27/17 [History] Benazepril HCl [Lotensin] 20 mg PO DAILY 02/27/17 [History] Calcium Citrate/Vitamin D3 [Calcium Citrate + D] 1 tab PO BIDMEALS 02/27/17 [History] Insulin Aspart [NovoLOG] 20 unit SQ ACBREAKFAST 02/27/17 [History] Insulin Aspart [NovoLOG] 20 unit SQ ACDINNER 02/27/17 [History] Insulin Aspart [NovoLOG] 30 unit SQ ACLUNCH 02/27/17 [History] Metoprolol Succinate [Toprol XL] 100 mg PO DAILY 02/27/17 [History] Multivitamin [Daily Multiple Vitamin] 1 tab PO DAILY 02/27/17 [History] Triamcinolone Acetonide [Triamcinolone Acetonide 0.1% Crm] 1 applic TOP BID PRN 02/27/17 [History] Triamterene/Hydrochlorothiazid [Triamterene-HCTZ 37.5-25 MG] 1 each PO DAILY 02/27/17 [History] atorvaSTATin [Lipitor] 40 mg PO DAILY 02/27/17 [History] buPROPion [Wellbutrin XL] 300 mg PO DAILY 02/27/17 [History] metFORMIN HCl [Metformin HCl] 500 mg PO BID 02/27/17 [History] Insulin Glargine,Hum.Rec.Anlog [Basaglar Kwikpen U-100] 65 unit SUBCUT DAILY 02/28/17 [History] Diclofenac Sodium [Voltaren] 4 gram TOP TID 10/21/20 [History] Famotidine 40 mg PO BID 10/21/20 [History] Fluticasone Propionate [Flonase Allergy Relief] 2 spray MECHE BID PRN 10/21/20 [History] Gabapentin [Neurontin] 600 mg PO QID PRN 10/21/20 [History] Magnesium Chloride [Slow-Mag] 2 tab PO DAILY 10/21/20 [History] Albuterol [Proventil HFA] 1 inh INH QID inhaler 10/24/20 [Rx] Levofloxacin [Levaquin] 500 mg PO DAILY 5 Days #5 tablet 10/24/20 [Rx] predniSONE [Prednisone] 40 mg PO DAILY 4 Days #8 tablet 10/24/20 [Rx] Patient Handouts: Ceftriaxone Injection, Hypomagnesemia, Azithromycin solution for injection, Community-Acquired Pneumonia, Adult Forms: ED Department Discharge Referrals: PCP,Unknown [Primary Care Provider] - - Discharge Summary/Plan Comment DC Time >30 min.: No Total # of Minutes for Discharge Time: 25 Discharge Summary/Plan Comment: Take the oral antibiotics until gone. start tomorrow. take the steroids until gone, start tomorrow. TAlk to your physician about your bipap and possible over night pulse oximetry. Talk to your PCP about possible echocardiogram. Make suer to follow up with a chest x-ray after treatment for resolution of your pneumonia. Use your nebulizers at home - General Info Date of Service: 10/24/20 Admission Dx/Problem (Free Text: pneumonia, fever, hypoxia Subjective Update: doing better, not hypoxic, fevers gone. Functional Status: Reports: Pain Controlled, Tolerating Diet, Ambulating - Review of Systems HEENT: Reports: No Symptoms Pulmonary: Reports: Shortness of Breath, Cough Cardiovascular: Reports: No Symptoms Gastrointestinal: Reports: No Symptoms Genitourinary: Reports: No Symptoms Musculoskeletal: Reports: No Symptoms Skin: Reports: No Symptoms Neurological: Reports: Other (memory issues, not new) - Patient Data Vitals - Most Recent: Last Vital Signs Temp 36.4 C 10/24/20 07:45 Pulse 78 10/24/20 07:45 Resp 20 10/24/20 07:45 BP 125/47 L 10/24/20 07:45 Pulse Ox 94 L 10/24/20 07:45 Weight - Most Recent: 113.489 kg I&O - Last 24 hours: Intake & Output 10/23/20 10/24/20 10/24/20 22:59 06:59 14:59 Intake Total 910 Output Total 1000 Balance 910 -1000 Lab Results - Last 24 hrs: Laboratory Results - last 24 hr 10/23/20 10/23/20 10/23/20 Range/Units 11:49 17:11 21:08 WBC (4.0-10.2) K/uL RBC (3.77-5.09) M/uL Hgb (11.7-15.5) g/dL Hct (34.0-46.0) % MCV (84.0-98.0) fL MCH (28.2-33.3) pg MCHC (31.7-36.0) g/dL RDW (11.2-14.1) % Plt Count (150-350) K/uL Neut % (Auto) (45.0-80.0) % Lymph % (Auto) (10.0-50.0) % [place] % (Auto) (2.0-14.0) % Eos % (Auto) (0.0-5.0) % Baso % (Auto) (0.0-2.0) % Neut # (Auto) (1.40-7.00) K/uL Lymph # (Auto) (0.50-3.50) K/uL [place] # (Auto) (0.00-1.00) K/uL Eos # (Auto) (0.00-0.50) K/uL Baso # (Auto) (0.00-0.20) K/uL D-Dimer, Quantitative (0-400) ng/mL Sodium (136-145) mmol/L Potassium (3.5-5.1) mmol/L Chloride (98-107) mmol/L Carbon Dioxide (21.0-32.0) mmol/L Anion Gap (7-15) meq/L BUN (7-18) mg/dL Creatinine (0.51-1.17) mg/dL Est Cr Clr Drug Dosing mL/min Estimated GFR (MDRD) mL/min Glucose (70-99) mg/dL POC Glucose 283 H 255 H 215 H (70-99) mg/dL Calcium (8.5-10.1) mg/dL Total Bilirubin (0.2-1.0) mg/dL AST (15-37) U/L ALT (12-78) U/L Alkaline Phosphatase (46-116) IU/L Total Protein (6.4-8.2) g/dL Albumin (3.4-5.0) g/dL 10/24/20 10/24/20 10/24/20 Range/Units 07:37 07:38 07:38 WBC 6.0 (4.0-10.2) K/uL RBC 3.51 L (3.77-5.09) M/uL Hgb 10.3 L (11.7-15.5) g/dL Hct 31.9 L (34.0-46.0) % MCV 90.9 (84.0-98.0) fL MCH 29.3 (28.2-33.3) pg MCHC 32.3 (31.7-36.0) g/dL RDW 14.3 H (11.2-14.1) % Plt Count 142 L (150-350) K/uL Neut % (Auto) 63.2 (45.0-80.0) % Lymph % (Auto) 20.5 (10.0-50.0) % [place] % (Auto) 9.6 (2.0-14.0) % Eos % (Auto) 6.4 H (0.0-5.0) % Baso % (Auto) 0.3 (0.0-2.0) % Neut # (Auto) 3.77 (1.40-7.00) K/uL Lymph # (Auto) 1.22 (0.50-3.50) K/uL [place] # (Auto) 0.57 (0.00-1.00) K/uL Eos # (Auto) 0.38 (0.00-0.50) K/uL Baso # (Auto) 0.02 (0.00-0.20) K/uL D-Dimer, Quantitative (0-400) ng/mL Sodium 138 (136-145) mmol/L Potassium 4.7 (3.5-5.1) mmol/L Chloride 105 (98-107) mmol/L Carbon Dioxide 28.5 (21.0-32.0) mmol/L Anion Gap 4.5 L (7-15) meq/L BUN 20 H (7-18) mg/dL Creatinine 1.35 H (0.51-1.17) mg/dL Est Cr Clr Drug Dosing 29.79 mL/min Estimated GFR (MDRD) 39 mL/min Glucose 237 H (70-99) mg/dL POC Glucose 220 H (70-99) mg/dL Calcium 9.0 (8.5-10.1) mg/dL Total Bilirubin 0.6 (0.2-1.0) mg/dL AST 55 H (15-37) U/L ALT 50 (12-78) U/L Alkaline Phosphatase 104 (46-116) IU/L Total Protein 6.6 (6.4-8.2) g/dL Albumin 2.5 L (3.4-5.0) g/dL 10/24/20 Range/Units 07:38 WBC (4.0-10.2) K/uL RBC (3.77-5.09) M/uL Hgb (11.7-15.5) g/dL Hct (34.0-46.0) % MCV (84.0-98.0) fL MCH (28.2-33.3) pg MCHC (31.7-36.0) g/dL RDW (11.2-14.1) % Plt Count (150-350) K/uL Neut % (Auto) (45.0-80.0) % Lymph % (Auto) (10.0-50.0) % [place] % (Auto) (2.0-14.0) % Eos % (Auto) (0.0-5.0) % Baso % (Auto) (0.0-2.0) % Neut # (Auto) (1.40-7.00) K/uL Lymph # (Auto) (0.50-3.50) K/uL [place] # (Auto) (0.00-1.00) K/uL Eos # (Auto) (0.00-0.50) K/uL Baso # (Auto) (0.00-0.20) K/uL D-Dimer, Quantitative 2750 H (0-400) ng/mL Sodium (136-145) mmol/L Potassium (3.5-5.1) mmol/L Chloride (98-107) mmol/L Carbon Dioxide (21.0-32.0) mmol/L Anion Gap (7-15) meq/L BUN (7-18) mg/dL Creatinine (0.51-1.17) mg/dL Est Cr Clr Drug Dosing mL/min Estimated GFR (MDRD) mL/min Glucose (70-99) mg/dL POC Glucose (70-99) mg/dL Calcium (8.5-10.1) mg/dL Total Bilirubin (0.2-1.0) mg/dL AST (15-37) U/L ALT (12-78) U/L Alkaline Phosphatase (46-116) IU/L Total Protein (6.4-8.2) g/dL Albumin (3.4-5.0) g/dL MARTIN Results - Last 24 hrs: Microbiology 10/21/20 17:32 Aerobic Blood Culture - Preliminary Blood - Venous NO GROWTH AFTER 2 DAYS Anaerobic Blood Culture - Preliminary NO GROWTH AFTER 2 DAYS 10/21/20 17:32 Aerobic Blood Culture - Preliminary Blood - Venous - Lab Draw NO GROWTH AFTER 2 DAYS Anaerobic Blood Culture - Preliminary NO GROWTH AFTER 2 DAYS Med Orders - Current: Current Medications Acetaminophen (Acetaminophen 325 Mg Tab) 650 mg PO Q4H PRN PRN Reason: Fever Last Admin: 10/22/20 17:01 Dose: 650 mg Documented by: Albuterol (Albuterol 6.7 Gm Inhaler) 0 gm INH QID SHARIF Last Admin: 10/24/20 07:34 Dose: 2 puff Documented by: Albuterol (Albuterol 6.7 Gm Inhaler) 0 gm INH Q4H PRN PRN Reason: Dyspnea Last Admin: 10/22/20 05:06 Dose: 2 puff Documented by: Aspirin (Aspirin 81 Mg Tab.Ec) 81 mg PO DAILY [facility] Last Admin: 10/24/20 07:32 Dose: 81 mg Documented by: Atorvastatin Calcium (Atorvastatin 40 Mg Tab) 40 mg PO DAILY [facility] Last Admin: 10/24/20 07:39 Dose: 40 mg Documented by: Bupropion HCl (Bupropion 150 Mg Tab.Er) 300 mg PO DAILY [facility] Last Admin: 10/24/20 07:34 Dose: 300 mg Documented by: Dextrose/Water (50% Dextrose In Water 50 Ml Syringe) 50 ml IVPUSH ASDIRECTED PRN PRN Reason: Hypoglycemia Enoxaparin Sodium (Enoxaparin 30 Mg/0.3 Ml Syringe) 30 mg SUBCUT Q24H [facility] Last Admin: 10/23/20 21:10 Dose: 30 mg Documented by: Glucagon (Glucagon,Human Recombinant 1 Mg Vial) 1 mg IM ASDIRECTED PRN PRN Reason: Hypoglycemia Guaifenesin/Dextromethorphan (Guaifenesin/Dextromethorphan 100-10 Mg/5 Ml Soln 10 Ml Cup) 10 ml PO Q4H PRN PRN Reason: Cough Last Admin: 10/23/20 09:51 Dose: 10 ml Documented by: Azithromycin 500 mg/ Sodium (Chloride) 250 mls @ 250 mls/hr IV Q24H [facility] Last Admin: 10/23/20 17:37 Dose: 250 mls/hr Documented by: Ceftriaxone Sodium 1 gm/ (Sodium Chloride) 100 mls @ 200 mls/hr IV Q24H [facility] Last Admin: 10/24/20 09:49 Dose: 200 mls/hr Documented by: Insulin Human Lispro (Insulin Lispro 100 Units/Ml 3 Ml Vial) 0 unit SUBCUT TIDAC [facility]; Protocol Last Admin: 10/24/20 07:34 Dose: 4 units Documented by: Lisinopril (Lisinopril 20 Mg Tab) 20 mg PO DAILY [facility] Last Admin: 10/24/20 07:39 Dose: 20 mg Documented by: Magnesium Oxide (Magnesium Oxide 400 Mg Tab) 400 mg PO BID [facility] Last Admin: 10/24/20 07:32 Dose: 400 mg Documented by: Metoprolol Succinate (Metoprolol Succinate 50 Mg Tab.Er) 100 mg PO DAILY [facility] Last Admin: 10/23/20 07:35 Dose: 100 mg Documented by: Ondansetron HCl (Ondansetron 4 Mg/2 Ml Sdv) 4 mg IVPUSH Q6H PRN PRN Reason: Nausea Last Admin: 10/22/20 17:05 Dose: 4 mg Documented by: Polyethylene Glycol (Polyethylene Glycol 3350 Powder 17 Gm Packet) 17 gm PO DAILY PRN PRN Reason: Constipation Last Admin: 10/23/20 08:28 Dose: 17 gm Documented by: Sodium Chloride (Sodium Chloride 0.9% 10 Ml Syringe) 10 ml FLUSH ASDIRECTED PRN PRN Reason: Keep Vein Open Last Admin: 10/24/20 09:49 Dose: 10 ml Documented by: Triamterene/Hydrochlorothiazide (Hydrochlorothiazide/Triamterene 50-75 Mg Tab) 0.5 each PO DAILY [facility] Last Admin: 10/24/20 07:39 Dose: 0.5 each Documented by: Discontinued Medications Acetaminophen (Acetaminophen 325 Mg Tab) 650 mg PO NOW ONE Stop: 10/21/20 18:47 Last Admin: 10/21/20 19:46 Dose: 650 mg Documented by: Azithromycin (Azithromycin 250 Mg Tab) 500 mg PO ONETIME ONE Stop: 10/21/20 18:14 Last Admin: 10/21/20 18:36 Dose: Not Given Documented by: Bupropion HCl (Bupropion 150 Mg Tab.Er) 150 mg PO DAILY [facility] Last Admin: 10/23/20 09:04 Dose: Not Given Documented by: Ceftriaxone Sodium (Ceftriaxone 1 Gm Vial) 1 gm IM ONETIME ONE Stop: 10/21/20 18:13 Last Admin: 10/21/20 18:36 Dose: Not Given Documented by: Azithromycin 500 mg/ Sodium (Chloride) 250 mls @ 250 mls/hr IV ONETIME ONE Stop: 10/21/20 19:20 Last Admin: 10/21/20 19:45 Dose: 250 mls/hr Documented by: Ceftriaxone Sodium 1 gm/ (Sodium Chloride) 100 mls @ 200 mls/hr IV ONETIME ONE Stop: 10/21/20 18:51 Last Admin: 10/21/20 18:44 Dose: 200 mls/hr Documented by: Sodium Chloride (Normal Saline) 500 mls @ 250 mls/hr IV .BOLUS SHARIF Last Admin: 10/21/20 22:02 Dose: 250 mls/hr Documented by: Magnesium Sulfate/Dextrose 1 (gm/ Premix) 100 mls @ 100 mls/hr IV ONETIME ONE Stop: 10/21/20 19:22 Last Admin: 10/21/20 20:56 Dose: 100 mls/hr Documented by: Sodium Chloride (Normal Saline) 1,000 mls @ 50 mls/hr IV ASDIRECTED [facility] Last Admin: 10/22/20 20:45 Dose: 50 mls/hr Documented by: Magnesium Sulfate/Dextrose 1 (gm/ Premix) 100 mls @ 100 mls/hr IV ONETIME ONE Stop: 10/22/20 20:02 Last Admin: 10/22/20 20:42 Dose: 100 mls/hr Documented by: Magnesium Sulfate/Dextrose 1 (gm/ Premix) 100 mls @ 100 mls/hr IV ONETIME ONE Stop: 10/23/20 07:59 Last Admin: 10/23/20 08:28 Dose: Not Given Documented by: Insulin Human Lispro (Insulin Lispro 100 Units/Ml 3 Ml Vial) 0 unit SUBCUT BIDAC [facility]; Protocol Last Admin: 10/22/20 17:16 Dose: 6 unit Documented by: Iopamidol (Iopamidol 755 Mg/Ml 100 Ml Bottle) 100 ml IVPUSH ONETIME STA Stop: 10/24/20 09:41 Last Admin: 10/24/20 10:13 Dose: 100 ml Documented by: Levofloxacin (Levofloxacin 500 Mg Tab) 500 mg PO ONETIME ONE Stop: 10/24/20 11:40 Lorazepam (Lorazepam 2 Mg/Ml Sdv) 0.5 mg IVPUSH Q4H PRN PRN Reason: Agitation Lorazepam (Lorazepam 2 Mg/Ml Sdv) 0.5 mg IVPUSH Q8H PRN PRN Reason: Agitation Metformin HCl (Metformin 500 Mg Tab) 1,000 mg PO BID SHARIF Omeprazole (Omeprazole 20 Mg Cap.Cr) 20 mg PO Q48H SHARIF Last Admin: 10/21/20 23:11 Dose: Not Given Documented by: Ondansetron HCl (Ondansetron 4 Mg/2 Ml Sdv) Confirm Administered Dose 4 mg .ROUTE .STK-MED ONE Stop: 10/22/20 17:00 Last Admin: 10/22/20 17:17 Dose: Not Given Documented by: Pantoprazole Sodium (Pantoprazole 40 Mg Vial) 40 mg IVPUSH ONETIME ONE Stop: 10/22/20 16:34 Last Admin: 10/22/20 17:01 Dose: 40 mg Documented by: Prednisone (Prednisone 20 Mg Tab) 40 mg PO ONETIME ONE Stop: 10/24/20 11:40 - Exam General: Reports: Alert, Oriented HEENT: Reports: Pupils Equal, Pupils Reactive Neck: Reports: Supple Lungs: Reports: Clear to Auscultation, Normal Respiratory Effort Cardiovascular: Reports: Regular Rate, Regular Rhythm GI/Abdominal Exam: Normal Bowel Sounds, Soft, Non-Tender (Female) Exam: Normal External Exam Back Exam: Reports: Normal Inspection, Full Range of Motion Extremities: Normal Inspection, Normal Range of Motion Neurological: Reports: No New Focal Deficit Psy/Mental Status: Reports: Alert, Normal Affect
== END 2020-10-24 12:20 | disposition home or self-care (01) | DRG 871 ==
LOC: LL.ED 16:38 → LL.MS 20:00
PROVIDERS: ADMIT Emergency Medicine; ATTEND Emergency Medicine
DX: A41.89 Other specified sepsis (principal); F41.0 Panic disorder [episodic paroxysmal anxiety]; J18.9 Pneumonia, unspecified organism; J44.0 Chronic obstructive pulmonary disease with (acute) lower respiratory infection; E87.2 Acidosis; Z20.822 Contact with and (suspected) exposure to COVID-19; I10 Essential (primary) hypertension; E78.00 Pure hypercholesterolemia, unspecified; J44.9 Chronic obstructive pulmonary disease, unspecified; K80.20 Calculus of gallbladder without cholecystitis without obstruction; M19.90 Unspecified osteoarthritis, unspecified site; E66.9 Obesity, unspecified; M85.80 Other specified disorders of bone density and structure, unspecified site; E11.9 Type 2 diabetes mellitus without complications; J30.9 Allergic rhinitis, unspecified; R32 Unspecified urinary incontinence; I73.9 Peripheral vascular disease, unspecified; K57.90 Diverticulosis of intestine, part unspecified, without perforation or abscess without bleeding; K21.9 Gastro-esophageal reflux disease without esophagitis; F32.9 Major depressive disorder, single episode, unspecified; E11.51 Type 2 diabetes mellitus with diabetic peripheral angiopathy without gangrene; G47.30 Sleep apnea, unspecified; E83.42 Hypomagnesemia; R79.89 Other specified abnormal findings of blood chemistry; E80.6 Other disorders of bilirubin metabolism; E78.5 Hyperlipidemia, unspecified; K76.9 Liver disease, unspecified; N18.9 Chronic kidney disease, unspecified; I12.9 Hypertensive chronic kidney disease with stage 1 through stage 4 chronic kidney disease, or unspecified chronic kidney disease; E11.22 Type 2 diabetes mellitus with diabetic chronic kidney disease; Z88.0 Allergy status to penicillin; Z79.82 Long term (current) use of aspirin; Z79.4 Long term (current) use of insulin; Z79.899 Other long term (current) drug therapy; Z85.3 Personal history of malignant neoplasm of breast; Z90.49 Acquired absence of other specified parts of digestive tract; Z90.710 Acquired absence of both cervix and uterus
CPT/HCPCS: 36415; 71046; 80053; 81001; 83605; 83735; 83880; 85025; 85379; 87040 ×2; 96365; 96367; 99285; A9270; J0456; J0696; J7050; U0002; 71275; 82947; 94640; 99223; 99232; 99233; 99238; C9113; J1650; J1815-GY; J2405; J3475; J7030; J7040; J7512; Q9967